=== PATIENT | male | born 1955 | race Caucasian/White ===

== ENCOUNTER → 2016-11-06 | Outpatient (POV) | payer MEDICAID, SELFPAY | PROVIDERS: Visit Provider Internal Medicine | DX: Y99.9 Unspecified external cause status (principal) | CPT/HCPCS: 93005 ==

== ENCOUNTER → 2017-10-07 13:18 | Outpatient (REF) | payer MEDICAID, SELFPAY ==
[2017-10-07 18:31] LABS: Basophils # 0.1 K/mm3 (0-0.2); Basophils % 0.8 % (0.1-2.0); Eosinophils # 0.5 K/mm3 (0.0-0.4); Eosinophils % 5.6 % (0.1-12.0); Hematocrit 45.3 % (42.0-52.0); Lymphocytes # 2.3 K/mm3 (0.7-4.5); Lymphocytes % 26.9 K/mm3 (10-50); Mean Corpuscular HGB Conc 33.2 g/dL (31.8-35.4); Mean Corpuscular Hemoglobin 28.6 pg (27.0-31.2); Mean Corpuscular Volume 86.2 fl (80-94); Mean Platelet Volume 8.6 fl (7.4-10.4); Monocytes # 0.5 K/mm3 (0.1-1.0); Monocytes % 6.1 % (1.7-9.3); Neutrophils # 5.2 K/mm3 (1.8-7.8); Neutrophils % 60.6 % (37.0-80.0); Platelet Count 236 K/mm3 (142-424); Red Blood Count 5.25 M/mm3 (4.60-6.20); Red Cell Distribution Width 13.3 % (11.5-17.5); White Blood Count 8.5 K/mm3 (4.8-10.8)
[2017-10-07 18:39] LABS: Alanine Aminotransferase 43 U/L (12-78); Albumin Level 4.1 gm/dL (3.4-5.0); Albumin/Globulin Ratio 1.3 (1.1-1.8); Alkaline Phosphatase 90 U/L (46-116); Aspartate Amino Transferase 23 U/L (15-37); Bilirubin,Total 0.4 mg/dL (0.2-1.0); Blood Urea Nitrogen 15 mg/dL (7-18); Calcium 9.2 mg/dL (8.5-10.1); Carbon Dioxide 29 mmol/L (21.0-32.0); Chloride 103 mmol/L (98-107); Creatinine,Serum 1.12 mg/dL (0.70-1.30); Estimated Glomerular Filt Rate 67 ml/min (>60); GFR (African American) 81 ML/MIN (>60); Globulin 3.2 gm/dl (1.3-3.2); Glucose 169 mg/dL (74-106); Sodium 140 mmol/L (136-145); Total Protein,Serum 7.3 gm/dL (6.4-8.2)
[2017-10-07 19:35] LABS: Hemoglobin A1C 6.6 % (0.0-7.0)
== END ==
LOC: LAB 13:18
PROVIDERS: Visit Provider Emergency Medicine
DX: R53.83 Other fatigue (principal)
CPT/HCPCS: 80053; 83036; 85025

== ENCOUNTER → 2017-10-21 10:51 | Outpatient (CLI) | payer MEDICAID, SELFPAY ==
--- NOTE | 2017-10-21 11:07 | US_ITS ---
US Arterial Ankle Brachial Ind INDICATION for exam: Lower extremity pain, leg pain. Claudication, peripheral vascular disease, rest pain, ORDERING PHYSICIAN: Lamine Lezama MD PATIENT AGE: 62 years TECHNIQUE: Segmental pressures obtained of both right and left leg. These are compared to brachial blood pressure to yield index at each level sampled including summary ALEXIA. The data sheets from the procedure are available in PACS FINDINGS Rest study only performed today No prior studies available for comparison. Blood pressures reported are in millimeters mercury. RIGHT LEG ALEXIA = 1.5. Right tibia 0.9 Brachial BP: 138 Thigh BP: 199 Calf BP: >254 Ankle PT: 217 Ankle DP : 204 Digit =126 LEFT LEG ALEXIA = 1.6 Left TBI 0.6 Brachial BPD: 147 Thigh BP: 194 Calf BP: >254 Ankle PT:230 Ankle DP: 230 Digit = 91 Pulses and waveforms: Diminished pulses and waveforms IMPRESSION: 1. Elevated ABIs on both sides consistent with noncompliant arteries/hardening of the arteries which may be seen with diabetes. 2. Low left TBI consistent with small vessel disease
== END ==
PROVIDERS: PCP Emergency Medicine; Visit Provider Internal Medicine
DX: I73.9 Peripheral vascular disease, unspecified (principal)
CPT/HCPCS: 93922

== ENCOUNTER → 2018-01-13 08:33 | Outpatient (CLI) | payer MEDICAID, SELFPAY ==
--- NOTE | 2018-01-13 08:35 | MR_ITS ---
MR lumbar spine wo con, MR 3-d myelogram/MRCP Ordering Physician: Kareem Sheridan MD Patient Age: 62 years: Male HISTORY: ITS.REASON: Back Pain Bilateral low back pain. Bilateral leg pain numbness and tingling for 2 years. If standing long period of time his legs give out TECHNIQUE: Sagittal STIR, T1, T2, axial T1 and T2. On 1.5T Siemens wide bore MRI. 3-D MR myelogram image set obtained & performed on MRI workstation. Additional sagittal thin section T2 weighted dataset obtained from this latter acquisition as well (---76 CPT) COMPARISON :Plain films lumbar spine 06/02/2016 FINDINGS Vertebral bodies appear intact no compression fractures nor lesion. Multilevel degenerative disc changes evident L5/S1. Degenerative disc with disc bulge & disc space narrowing. Most significant is the additional Focal disc herniation/disc extrusion is seen midline and just left of midline at this level.. This Focal disc extrusion seen extending over `~8 mm posterior & ~9 mm at its base This focally indents the thecal sac and displaces left S1 and possibly S2 nerve root Generous bilateral facet hypertrophy at this level also noted. However which also narrows the spinal canal and contributes to the pronounced left foraminal encroachment, and less pronounced right foraminal encroachment.. L4/5. Disc space narrowing with Generous diffuse disc bulge most evident to the right & continuing through right foramen.... Additional disc protrusion far laterally which encroaches upon lateral aspect/& exit point of the right foramen, and possibly encroach upon the right ganglia... There is also prominent facet hypertrophy at this level right greater than left along with ligamentum flavum hypertrophy. These features combine to yield mild Central Canal Stenosis in addition to the prominent right recess and foraminal encroachment,. Bilateral foraminal encroachment most pronounced right L3/4 findings less pronounced.. Slight loss of disc hydration. With mild diffuse disc bulge most evident towards right foramen. Mild/moderate Facet hypertrophy. Features combine to yield Moderate bilateral foraminal encroachment most evident to the right. The disc bulge at this level is most evident anteriorly associated with anterior marginal osteophytes.. L2/3 disc intact with only scant foraminal disc prominence. Mild/Moderate facet hypertrophy. The disc bulge at this level is most evident anteriorly associated with anterior marginal osteophytes. Bulge L1/2 mild right foraminal disc bulge minor. Minimal facet hypertrophy/arthropathy at this level. Mild bilateral right foraminal encroachment T12/L1. Disc intact neural foramen widely patent T11/12 disc intact The 3-D MR myelogram image set demonstrates the narrowing and tapering of the spinal canal most evident L4/5 based upon thecal sac most evident to the right reflecting the rightward disc bulge no L5/S1.. There is only slight minimal tapering of thecal sac at L3/4 and less the L2/3. At L5/S1 The thecal sac tapers and a small at this level best the indentation from disc herniation L5/S1 is less appreciable on the this 3-D sequence. IMPRESSION Multilevel findings findings highlighted below: L5/S1. Focal disc herniation/ w focal disc extrusion seen midline & just left of midline-focally indenting the thecal sac and displacing LEFT S1 and S2 nerve roots. Also prominent facet hypertrophy bilaterally. Combination these features does yield pronounced encroachment of the LEFT neural foramen and recess, more so than right. L4/5 generous diffuse disc bulge most evident the RIGHT. With additional far lateral rightward disc protrusion encroach upon the lateral aspect right foramen. These features combine to yield mild Central Spinal Stenosis; & generous Bilateral
== END ==
PROVIDERS: PCP Emergency Medicine; Visit Provider Emergency Medicine
DX: M54.9 Dorsalgia, unspecified (principal)
CPT/HCPCS: 72148; 76376

== ENCOUNTER → 2018-02-17 14:41 | Outpatient (POV) | payer MEDICAID, SELFPAY ==
[2018-02-17 14:56] VITALS: BP 165/101; PULSE 79; O2SAT 98
--- NOTE | 2018-02-17 15:58 | HMH.PMCON ---
Assessment and Plan (1) Degenerative disc disease Current visit: Yes Status: Chronic Category: Medical (2) Lumbar radiculopathy Current visit: Yes Status: Chronic Category: Medical Code(s): M54.16 - Radiculopathy, lumbar region (3) Intervertebral disc extrusion Current visit: Yes Status: Chronic Category: Medical - Assessment and plan all Dx Assessment and Plan for all problems:: I believe the patient is on a very appropriate dose of gabapentin 600 mg 1 p.o. 3 times daily and meloxicam 15 mg a day. Patient states this is doing quite well for him. Patient is uninterested in injections at this time. I told the patient he will follow up with us at any time. I will follow-up with him on an as-needed basis This note was dictated using voice recognition software and may contain errors or omissions HPI - Data of Consult Requesting Physician: Julissa Lund APRN Primary Care Provider: Kareem Sheridan MD Family Provider: Referral Provider, MD - Consult Narrative Reason for consult: Bilateral leg pain History of present illness: Mr. Baeza is a 62 year old malewho presents today for consult in regard to low back and bilateral leg. Patient states he had a flare of pain back 5 years ago while using a chainsaw. patient states that all movement increases his pain while his medication to decrease it. Patient states he has numbness and tingling in his bilateral legs. Patient was recently seen by a neurosurgeon and deemed a surgical candidate. Patient rates his pain a 6 out of 10 today. Patient states that with the meloxicam and gabapentin he does quite well. He denies side effects to this he states that he decreases most of his pain. Patient is not interested in injective therapy at this point. I believe the patient is doing well on his medication that this may be beneficial for him until he decides that he would like to pursue surgical options. Patient states he also has a back brace that he is now wearing which helps. CC: Julissa Lund APRN [facility] History I have reviewed the patient's past medical history: Yes Medical History: Reports:: Congenital Heart Disease, Diabetes Mellitus Type 2, Hyperlipidemia, Hypertension, Myocardial Infarction Other Surgeries: Yes: Angioplasty Amputation: No Fractures: No - *Social History Educational Level: Attended High School Smoking Status: Never smoker Tobacco Type: smokeless tobacco Alcohol Intake: never Alcohol Intake Frequency:: a few times a week Substance Use Type: denies use Occupational Status: employed Housing: house - Psychiatric History Expresses thoughts of harming self/others: None Suicide Plan Description: No Plan *Family Hx:: Cancer, Heart Attack Review of Systems - Review of Systems ROS General: no recent weight change, no fever, no sleep disturbances Respiratory: no cough, no shortness of air, no recurring pulmonary infections Cardiovascular/Peripheral Vascular: No chest pain, No palpitations, no edema, no shortness of breath. Gastrointestinal: no incontinence, normal bowel movements reported Genitourinary: no incontinence Musculoskeletal: Back pain, bilateral leg pain Psychiatric: normal mood/ affect Neurological: Weakness in bilateral lower extremities at times, [denies balance issues] Meds Home Medications Medication Instructions Recorded Confirmed Type fluticasone 110 mcg/actuation HFA 1 puff INHALATION BID 10/04/17 History aerosol inhaler omeprazole 20 mg capsule,delayed 20 mg PO ONCE 10/04/17 History release polyethylene glycol 3350 17 17 g PO ONCE 10/04/17 History gram/dose oral powder Allergies Allergy/AdvReac Type Severity Reaction Status Date / Time Penicillins Allergy Unknown Verified 01/01/18 10:18 Objective Vital signs: Pulse BP Pulse Ox 79 165/101 98 02/17/18 14:56 02/17/18 14:56 02/17/18 14:56 Narrative: Physical Exam General: Alert
--- NOTE | 2018-02-17 16:01 | P.CONS_ITS ---
Assessment and Plan (1) Degenerative disc disease Current visit: Yes Status: Chronic Category: Medical (2) Lumbar radiculopathy Current visit: Yes Status: Chronic Category: Medical Code(s): M54.16 - Radiculopathy, lumbar region (3) Intervertebral disc extrusion Current visit: Yes Status: Chronic Category: Medical - Assessment and plan all Dx Assessment and Plan for all problems:: I believe the patient is on a very appropriate dose of gabapentin 600 mg 1 p.o. 3 times daily and meloxicam 15 mg a day. Patient states this is doing quite well for him. Patient is uninterested in injections at this time. I told the patient he will follow up with us at any time. I will follow-up with him on an as-needed basis This note was dictated using voice recognition software and may contain errors or omissions HPI - Data of Consult Requesting Physician: Julissa Lund APRN Primary Care Provider: Kareem Sheridan MD Family Provider: Referral Provider, MD - Consult Narrative Reason for consult: Bilateral leg pain History of present illness: Mr. Baeza is a 62 year old malewho presents today for consult in regard to low back and bilateral leg. Patient states he had a flare of pain back 5 years ago while using a chainsaw. patient states that all movement increases his pain while his medication to decrease it. Patient states he has numbness and tingling in his bilateral legs. Patient was recently seen by a neurosurgeon and deemed a surgical candidate. Patient rates his pain a 6 out of 10 today. Patient states that with the meloxicam and gabapentin he does quite well. He denies side effects to this he states that he decreases most of his pain. Patient is not interested in injective therapy at this point. I believe the patient is doing well on his medication that this may be beneficial for him until he decides that he would like to pursue surgical options. Patient states he also has a back brace that he is now wearing which helps. CC: Julissa Lund APRN [facility] History I have reviewed the patient's past medical history: Yes Medical History: Reports:: Congenital Heart Disease, Diabetes Mellitus Type 2, Hyperlipidemia, Hypertension, Myocardial Infarction Other Surgeries: Yes: Angioplasty Amputation: No Fractures: No - *Social History Educational Level: Attended High School Smoking Status: Never smoker Tobacco Type: smokeless tobacco Alcohol Intake: never Alcohol Intake Frequency:: a few times a week Substance Use Type: denies use Occupational Status: employed Housing: house - Psychiatric History Expresses thoughts of harming self/others: None Suicide Plan Description: No Plan *Family Hx:: Cancer, Heart Attack Review of Systems - Review of Systems ROS General: no recent weight change, no fever, no sleep disturbances Respiratory: no cough, no shortness of air, no recurring pulmonary infections Cardiovascular/Peripheral Vascular: No chest pain, No palpitations, no edema, no shortness of breath. Gastrointestinal: no incontinence, normal bowel movements reported Genitourinary: no incontinence Musculoskeletal: Back pain, bilateral leg pain Psychiatric: normal mood/ affect Neurological: Weakness in bilateral lower extremities at times, [denies balance issues] Meds Home Medications Medication Instructions Recorded Confirmed Type fluticasone 110 mcg/actuation HFA 1 puff INHALATION BID 10/04/17 History aerosol inhaler ome
== END ==
PROVIDERS: PCP Emergency Medicine; Visit Provider Clinical Nurse Specialist Family Health
DX: M54.16 Radiculopathy, lumbar region (principal)
CPT/HCPCS: 99202

== ENCOUNTER → 2018-03-31 16:27 | Outpatient (REF) | payer MEDICAID, SELFPAY ==
[2018-03-31 18:48] LABS: Basophils # 0.1 K/mm3 (0-0.2); Basophils % 1.2 % (0.1-2.0); Eosinophils # 0.6 K/mm3 (0.0-0.4); Eosinophils % 7.3 % (0.1-12.0); Hematocrit 46.1 % (42.0-52.0); Hemoglobin 14.9 g/dL (14.1-18.0); Lymphocytes # 2.4 K/mm3 (0.7-4.5); Lymphocytes % 30.5 K/mm3 (10-50); Mean Corpuscular HGB Conc 32.4 g/dL (31.8-35.4); Mean Corpuscular Hemoglobin 28.2 pg (27.0-31.2); Mean Corpuscular Volume 87.1 fl (80-94); Mean Platelet Volume 8.5 fl (7.4-10.4); Monocytes # 0.5 K/mm3 (0.1-1.0); Monocytes % 6.5 % (1.7-9.3); Neutrophils # 4.3 K/mm3 (1.8-7.8); Neutrophils % 54.4 % (37.0-80.0); Platelet Count 253 K/mm3 (142-424); Red Blood Count 5.29 M/mm3 (4.60-6.20); Red Cell Distribution Width 13.3 % (11.5-17.5); White Blood Count 7.9 K/mm3 (4.8-10.8)
[2018-03-31 19:07] LABS: Alanine Aminotransferase 51 U/L (12-78); Albumin Level 4.1 gm/dL (3.4-5.0); Albumin/Globulin Ratio 1.2 (1.1-1.8); Alkaline Phosphatase 92 U/L (46-116); Anion Gap 15.5 mEq/L (5-15); Aspartate Amino Transferase 25 U/L (15-37); Bilirubin,Total 0.4 mg/dL (0.2-1.0); Blood Urea Nitrogen 19 mg/dL (7-18); Calcium 9.4 mg/dL (8.5-10.1); Carbon Dioxide 27 mmol/L (21.0-32.0); Chloride 112 mmol/L (98-107); Cholesterol 144 mg/dL (140-200); Creatinine,Serum 1.36 mg/dL (0.70-1.30); Estimated Glomerular Filt Rate 53 ml/min (>60); GFR (African American) 64 ML/MIN (>60); Globulin 3.3 gm/dl (1.3-3.2); Glucose 169 mg/dL (74-106); HDL Cholesterol 29 mg/dL (27-67); LDL Cholesterol 81 mg/dL (0-130); Potassium 4.5 mmoL/L (3.5-5.1); Total Protein,Serum 7.4 gm/dL (6.4-8.2); Triglycerides 171 mg/dL (30-200); VLDL Cholesterol 34 mg/dL (0-40)
[2018-03-31 19:22] LABS: Sodium 150 mmol/L (136-145)
== END ==
LOC: LAB 16:27
PROVIDERS: Visit Provider Emergency Medicine
DX: E11.9 Type 2 diabetes mellitus without complications (principal)
CPT/HCPCS: 80053; 80061; 85025

== ENCOUNTER → 2018-04-02 13:18 | Outpatient (CLI) | payer MEDICAID, SELFPAY | PROVIDERS: Visit Provider Physician Assistant | DX: E11.9 Type 2 diabetes mellitus without complications (principal) ==

== ENCOUNTER → 2018-05-27 09:12 | Outpatient (REF) | payer MEDICAID, SELFPAY ==
[2018-05-27 14:31] LABS: Amphetamine/Metha Screen,Urine Negative ng/mL (<1000); Barbiturates Screen,Urine Negative ng/mL (<200); Benzodiazepines Screen,Urine Negative ng/mL (<200); Cannabinoid Screen,Urine Negative ng/mL (<50); Cocaine Screen,Urine Negative ng/mL (<300); Methadone Screen,Urine Negative ng/mL (<300); Opiate Screen,Urine Positive ng/mL (<300); Phencyclidine Screen,Urine Negative ng/mL (<25)
== END ==
LOC: LAB 09:12
PROVIDERS: Visit Provider Emergency Medicine
DX: Z79.899 Other long term (current) drug therapy (principal)
CPT/HCPCS: 80305

== ENCOUNTER → 2018-06-25 16:03 | Outpatient (CLI) | payer MEDICAID, SELFPAY | PROVIDERS: Visit Provider Emergency Medicine | DX: Z79.899 Other long term (current) drug therapy (principal) ==

== ENCOUNTER → 2018-07-24 14:53 | Outpatient (CLI) | payer MEDICAID, SELFPAY ==
[2018-07-25 19:15] LABS: Amphetamine/Metha Screen,Urine Negative ng/mL (<1000); Barbiturates Screen,Urine Negative ng/mL (<200); Benzodiazepines Screen,Urine Negative ng/mL (<200); Cannabinoid Screen,Urine Negative ng/mL (<50); Cocaine Screen,Urine Negative ng/mL (<300); Methadone Screen,Urine Negative ng/mL (<300); Opiate Screen,Urine Positive ng/mL (<300); Phencyclidine Screen,Urine Negative ng/mL (<25)
== END ==
PROVIDERS: PCP Emergency Medicine; Visit Provider Emergency Medicine
DX: Z79.899 Other long term (current) drug therapy (principal)
CPT/HCPCS: 80305

== ENCOUNTER → 2018-08-25 18:17 | Outpatient (CLI) | payer MEDICAID, SELFPAY ==
[2018-08-25 19:13] LABS: Amphetamine/Metha Screen,Urine Negative ng/mL (<1000); Barbiturates Screen,Urine Negative ng/mL (<200); Benzodiazepines Screen,Urine Negative ng/mL (<200); Cannabinoid Screen,Urine Negative ng/mL (<50); Cocaine Screen,Urine Negative ng/mL (<300); Methadone Screen,Urine Negative ng/mL (<300); Opiate Screen,Urine Positive ng/mL (<300); Phencyclidine Screen,Urine Negative ng/mL (<25)
== END ==
PROVIDERS: Visit Provider Emergency Medicine
DX: Z79.899 Other long term (current) drug therapy (principal); R53.83 Other fatigue
CPT/HCPCS: 80305

== ENCOUNTER → 2018-09-18 13:23 | Outpatient (CLI) | payer MEDICAID, SELFPAY | PROVIDERS: PCP Emergency Medicine; Visit Provider Podiatrist | DX: Z71.3 Dietary counseling and surveillance (principal); E11.9 Type 2 diabetes mellitus without complications | CPT/HCPCS: 97802 ==

== ENCOUNTER → 2018-11-25 17:40 | Outpatient (CLI) | payer MEDICAID, SELFPAY ==
[2018-11-25 19:06] LABS: Amphetamine/Metha Screen,Urine Negative ng/mL (<1000); Barbiturates Screen,Urine Negative ng/mL (<200); Benzodiazepines Screen,Urine Negative ng/mL (<200); Cannabinoid Screen,Urine Negative ng/mL (<50); Cocaine Screen,Urine Negative ng/mL (<300); Methadone Screen,Urine Negative ng/mL (<300); Opiate Screen,Urine Positive ng/mL (<300); Phencyclidine Screen,Urine Negative ng/mL (<25)
[2018-11-27 11:32] LABS: Creatinine, Urine 51.5 mg/dL (Not Estab.); Microalbumin, Urine 5.7 ug/mL (Not Estab.)
== END ==
PROVIDERS: Visit Provider Emergency Medicine
DX: E11.9 Type 2 diabetes mellitus without complications (principal); Z79.899 Other long term (current) drug therapy; Z79.84 Long term (current) use of oral hypoglycemic drugs
CPT/HCPCS: 80305; 82043; 82570

== ENCOUNTER → 2019-01-16 07:01 | Outpatient (CLI) | payer MEDICAID, SELFPAY ==
[2019-01-16 18:00] LABS: Anion Gap 14.4 mEq/L (5-15); Blood Urea Nitrogen 13 mg/dL (7-18); Carbon Dioxide 26 mmol/L (21.0-32.0); Chloride 103 mmol/L (98-107); Creatinine,Serum 1.11 mg/dL (0.70-1.30); Estimated Glomerular Filt Rate 67 ml/min (>60); GFR (African American) 81 ML/MIN (>60); Glucose 226 mg/dL (74-106); Potassium 4.4 mmoL/L (3.5-5.1); Sodium 139 mmol/L (136-145)
== END ==
PROVIDERS: Visit Provider Nurse Practitioner Family
DX: R06.02 Shortness of breath (principal); E11.9 Type 2 diabetes mellitus without complications; Z79.84 Long term (current) use of oral hypoglycemic drugs; I25.10 Atherosclerotic heart disease of native coronary artery without angina pectoris; I45.10 Unspecified right bundle-branch block; E78.49 Other hyperlipidemia; R07.9 Chest pain, unspecified; I10 Essential (primary) hypertension; J44.9 Chronic obstructive pulmonary disease, unspecified; E66.9 Obesity, unspecified
CPT/HCPCS: 36415; 80048

== ENCOUNTER → 2019-01-21 09:31 | Outpatient (CLI) | payer MEDICAID, SELFPAY ==
--- NOTE | 2019-01-21 09:33 | CA_ITS ---
PROCEDURE: 2-D M-mode and color Doppler study INDICATIONS FOR THE TEST: Chest pain + COPD Heart Murmur Tobacco Smoking Palpitations Fatigue Syncope Edema Hypertension+Diabetes Mellitus+ Rheumatic Fever SOB+MACKENZIE Obesity+Hyperlipidemia Family History HD Additional History gabino PATIENT INFORMATION HEIGHT: 73 WEIGHT:273 GENDER: Male B/P:135/87 2-D/M-MODE INTERPRETATION: 2-D MEASUREMENTS OBSERVED VALUES IN CMS Right Ventricular Dimension (RVDd) 2.9 Interventricular Septum (Thickness)(IVsd) 1.7 Left Ventricular Internal Dimensions(LVIDd) 4.8 Left Ventricular Posterior Wall (Thickness)(LVPWd) 1.2 Aortic Root 3.5 Aortic Cusp Separation 2.1 Left Atrial Dimensions (LAD) 3.9 2D 1. Left atrium is mildly enlarged, left ventricle is normal size, mild concentric left ventricular hypertrophy, visually estimated ejection fraction of 55% with no regional wall motion abnormality. 2. The right atrium and right ventricle are mildly enlarged with normal contractility. 3. The aortic valve is minimally thickened and fibrosed. 4. The mitral and tricuspid valve are grossly normal. 5. The pulmonic valve is poorly visualized. 6. No significant pericardial effusion noted. DOPPLER INTERROGATION: Doppler interrogation of the aortic, mitral and tricuspid valvular presence of mild mitral and tricuspid regurgitation, tricuspid regurgitation jet velocity is inadequate for calculation of the right ventricular systolic pressure, grade 1 diastolic dysfunction seen without tissue Doppler evidence of raised left atrial pressure. Inferior vena cava is not well visualized. CONCLUSION: 1. Mildly enlarged left atrium, normal left ventricular size, mild concentric left ventricular hypertrophy, visually estimated ejection fraction 55% with no regional wall motion abnormality, grade 1 diastolic dysfunction seen without tissue Doppler evidence of raised left atrial pressure. 2. Mildly enlarged right ventricle with normal contractility. 3. Mild mitral and tricuspid regurgitation, tricuspid regurgitation jet velocity is inadequate for calculation of the right ventricular systolic pressure, inferior vena cava is not well visualized. 4. No significant pericardial effusion noted.
--- NOTE | 2019-01-21 09:33 | NM_ITS ---
CARDIOLITE SPECT MYOCARDIAL PERFUSION LEXISCAN, REST AND STRESS: [facility] REVIEW QGS EF AND WALL MOTION EVALUATION: QPS - PERFUSION EVALUATION HISTORY: CAD, SOB DOSE: 10.59 mCi technetium 99m mibi intravenously at rest followed by 31.1 mCi technetium 99m mibi following the intravenous ministration of 0.4 mg of Lexiscan. Resting blood pressure is 129/83. Stress blood pressure 138/82. FINDINGS: Ejection fraction is calculated to be 56%. Uniform myocardial activity at both stress and rest. Gated images calculated ejection fraction of 56% with normal wall motion. IMPRESSION: Clinical correlation is advised. Patient did experience abnormal exercise EKG. There is no scintigraphic evidence of exercise-induced myocardial ischemia with normal ejection fraction normal wall motion
--- NOTE | 2019-01-21 09:33 | CI_ITS ---
Cerebrovascular Exam Indications: Follow-up carotid 433.10. IMPRESSIONS 1. The bilateral vertebral arteries are patent with normal antegrade flow. 2. Study suggests 20-49% stenosis involving the right internal carotid artery and the left internal carotid artery. Carotid duplex study. Complete study and Doppler flow study including spectral analysis, color and carson scale imaging. Height: Height: 185.4cm. Height: 73in. Weight: Weight: 123.8kg. Weight: 272.4lb. Body mass index: BMI: 36kg/m^2. Body surface area: BSA: 2.57m^2. Location: Vascular laboratory. Patient status: Outpatient. Tables: Arterial flow: + +--------+--------+ Location V sys V ed + +--------+--------+ Right CCA - proximal 86.4cm/s 19.6cm/s + +--------+--------+ Right CCA - distal 64.8cm/s 17.7cm/s + +--------+--------+ Right ECA 96.7cm/s -------- + +--------+--------+ Right ICA - proximal 99.5cm/s 35.3cm/s + +--------+--------+ Right ICA - mid 64.7cm/s 28.3cm/s + +--------+--------+ Right ICA - distal 59.9cm/s 26.2cm/s + +--------+--------+ Right vertebral 39.8cm/s -------- + +--------+--------+ Left CCA - proximal 95.7cm/s 24.6cm/s + +--------+--------+ Left CCA - distal 81.7cm/s 22.6cm/s + +--------+--------+ Left ECA 115cm/s -------- + +--------+--------+ Left ICA - proximal 48.2cm/s 16.8cm/s + +--------+--------+ Left ICA - mid 60.4cm/s 25.8cm/s + +--------+--------+ Left ICA - distal 73.4cm/s 40.3cm/s + +--------+--------+ Left vertebral 31.8cm/s -------- + +--------+--------+ Velocity ratios: + + + + + + Right, V sys Right, V ed Left, V sys Left, V ed + + + + + + Max ICA/dist CCA 1.54 1.99 0.9 1.78 + + + + + + (Report amended ) Electronically signed by: Rufino Guthrie [id number]
== END ==
PROVIDERS: PCP Emergency Medicine; Visit Provider Internal Medicine
DX: I25.10 Atherosclerotic heart disease of native coronary artery without angina pectoris (principal); R06.02 Shortness of breath; E11.9 Type 2 diabetes mellitus without complications; Z79.84 Long term (current) use of oral hypoglycemic drugs; E66.9 Obesity, unspecified; E78.49 Other hyperlipidemia; I10 Essential (primary) hypertension; I45.10 Unspecified right bundle-branch block; J44.9 Chronic obstructive pulmonary disease, unspecified; R60.9 Edema, unspecified; R07.9 Chest pain, unspecified; I67.2 Cerebral atherosclerosis; E78.5 Hyperlipidemia, unspecified; Z72.0 Tobacco use
CPT/HCPCS: 78452; 93017; 93306; 93880; A9502; J2785

== ENCOUNTER 2019-02-05 08:09 | Day surgery (SDC) | payer MEDICAID, SELFPAY ==
[2019-02-05] VITALS (12 sets, daily range): BP systolic 93–155; BP diastolic 44–76; PULSE 58–66; RESP 16–18; O2SAT 91–98; BMI 36.0
--- NOTE | 2019-02-05 09:00 | IR_ITS ---
CARDIAC CATHETERIZATION DATE OF CATHETERIZATION:02/05/2019 9:45 AM PROCEDURES: 1. Left heart catheterization 2. Left ventriculogram 3. Selective coronary angiogram INDICATION FOR TEST: 1. Angina pectoris 2. Abnormal EKG during stress test 3. Coronary artery disease Informed consent was obtained prior to the procedure. COMPLICATIONS: None ESTIMATED BLOOD LOSS: Less than 10 ml. TECHNIQUE: One percent lidocaine used to anesthetize the right anterior aspect of the wrist. The right radial artery was accessed via the Seldinger technique. A 6 Malay sheath was placed in the right radial artery. 2.5 mg of verapamil, 800 mcg of nitroglycerin, 1mg Lidocaine and 5000 U Heparin were given through the arterial sheath. The trap catheter was also used to perform left heart catheterization, left ventriculogram and selective coronary angiogram. At the end of the procedure the sheath was removed good hemostasis was achieved using Traclet band, patient was transferred to the postop holding area in stable condition . ANGIOGRAPHIC RESULTS: 1. The left main artery normal 2. The left anterior descending artery is proximally normal and has mild 10-20% luminal irregularities 3. The circumflex artery is dominant and normal 4. The right coronary artery small nondominant normal 5. The NOLAN ventriculogram reveals normal 65% 6. The left ventricular end-diastolic pressure 15 mmHg IMPRESSION: 1. Mild nonflow limiting coronary artery disease 2. Normal ejection fraction 3. Mildly elevated LVEDP PLAN: 1. Medical management
[2019-02-05 09:27] LABS: Basophils % 0.4 % (0.1-2.0); Eosinophils # 0.3 K/mm3 (0.0-0.4); Eosinophils % 4.1 % (0.1-12.0); Hematocrit 40.6 % (42.0-52.0); Hemoglobin 14.3 g/dL (14.1-18.0); Lymphocytes # 2.3 K/mm3 (0.7-4.5); Lymphocytes % 32.1 % (10-50); Mean Corpuscular HGB Conc 35.2 g/dL (31.8-35.4); Mean Corpuscular Hemoglobin 30.2 pg (27.0-31.2); Mean Corpuscular Volume 85.8 fl (80-94); Mean Platelet Volume 7.6 fl (7.4-10.4); Monocytes # 0.4 K/mm3 (0.1-1.0); Monocytes % 5.2 % (1.7-9.3); Neutrophils # 4.1 K/mm3 (1.8-7.8); Neutrophils % 58.1 % (37.0-80.0); Platelet Count 235 K/mm3 (142-424); Red Blood Count 4.73 M/mm3 (4.60-6.20); Red Cell Distribution Width 13.3 % (11.5-17.5); White Blood Count 7.1 K/mm3 (4.8-10.8)
[2019-02-05 09:36] LABS: Anion Gap 16.1 mEq/L (5-15); Blood Urea Nitrogen 21 mg/dL (7-18); Calcium 9.2 mg/dL (8.5-10.1); Carbon Dioxide 25 mmol/L (21.0-32.0); Chloride 101 mmol/L (98-107); Creatinine Clearance Estimated 96 mL/min (50-200); Creatinine,Serum 1.38 mg/dL (0.70-1.30); Estimated Glomerular Filt Rate 52 ml/min (>60); GFR (African American) 63 ML/MIN (>60); Glucose 238 mg/dL (74-106); Potassium 4.1 mmoL/L (3.5-5.1); Sodium 138 mmol/L (136-145)
== END 2019-02-05 13:48 | disposition home or self-care (01) ==
LOC: CATHLAB 08:10
PROVIDERS: PCP Emergency Medicine; Visit Provider Internal Medicine
DX: I25.118 Atherosclerotic heart disease of native coronary artery with other forms of angina pectoris (principal); E11.9 Type 2 diabetes mellitus without complications; E66.9 Obesity, unspecified; I45.10 Unspecified right bundle-branch block; I10 Essential (primary) hypertension; J44.9 Chronic obstructive pulmonary disease, unspecified; R06.02 Shortness of breath; Z21 Asymptomatic human immunodeficiency virus [HIV] infection status; Z95.5 Presence of coronary angioplasty implant and graft; E78.5 Hyperlipidemia, unspecified; I25.2 Old myocardial infarction; Z88.1 Allergy status to other antibiotic agents; Z79.899 Other long term (current) drug therapy
CPT/HCPCS: 80048; 85025; 93458; 99152; C1760; C1769; J1644; Q9967

== ENCOUNTER → 2019-04-29 13:42 | Outpatient (CLI) | payer MEDICAID, SELFPAY ==
[2019-04-29 14:06] LABS: Basophils # 0.1 K/mm3 (0-0.2); Basophils % 0.7 % (0.1-2.0); Eosinophils # 0.2 K/mm3 (0.0-0.4); Eosinophils % 3.1 % (0.1-12.0); Hematocrit 35.7 % (42.0-52.0); Hemoglobin 11.9 g/dL (14.1-18.0); Lymphocytes # 2.2 K/mm3 (0.7-4.5); Lymphocytes % 30.4 % (10-50); Mean Corpuscular HGB Conc 33.2 g/dL (31.8-35.4); Mean Corpuscular Volume 90.3 fl (80-94); Mean Platelet Volume 7.9 fl (7.4-10.4); Monocytes # 0.4 K/mm3 (0.1-1.0); Monocytes % 5.5 % (1.7-9.3); Neutrophils # 4.3 K/mm3 (1.8-7.8); Neutrophils % 60.2 % (37.0-80.0); Platelet Count 245 K/mm3 (142-424); Red Blood Count 3.95 M/mm3 (4.60-6.20); Red Cell Distribution Width 13.7 % (11.5-17.5); White Blood Count 7.1 K/mm3 (4.8-10.8)
[2019-04-29 15:46] LABS: Alanine Aminotransferase 79 U/L (12-78); Albumin Level 3.8 gm/dL (3.4-5.0); Albumin/Globulin Ratio 1.2 (1.1-1.8); Alkaline Phosphatase 89 U/L (46-116); Anion Gap 18.5 mEq/L (5-15); Aspartate Amino Transferase 30 U/L (15-37); Bilirubin,Total 0.6 mg/dL (0.2-1.0); Blood Urea Nitrogen 39 mg/dL (7-18); Calcium 9.1 mg/dL (8.5-10.1); Carbon Dioxide 21 mmol/L (21.0-32.0); Chloride 99 mmol/L (98-107); Chol/HDL Ratio 5.2 (1-3.5); Cholesterol 119 mg/dL (140-200); Creatinine,Serum 2.08 mg/dL (0.70-1.30); Estimated Glomerular Filt Rate 32 ml/min (>60); GFR (African American) 39 ML/MIN (>60); Globulin 3.3 gm/dl (1.3-3.2); Glucose 272 mg/dL (74-106); HDL Cholesterol 23 mg/dL (27-67); LDL Cholesterol 53 mg/dL (0-130); Potassium 5.5 mmoL/L (3.5-5.1); Sodium 133 mmol/L (136-145); T4 (Thyroxine) 5.7 ug/dl (4.7-13.3); Thyroid Stimulating Hormone 1.68 uIU/ml (0.358-3.740); Total Protein,Serum 7.1 gm/dL (6.4-8.2); Triglycerides 217 mg/dL (30-200); VLDL Cholesterol 43 mg/dL (0-40)
[2019-04-29 16:48] LABS: Hemoglobin A1C 9.4 % (0.0-7.0)
== END ==
PROVIDERS: Visit Provider Emergency Medicine
DX: E11.9 Type 2 diabetes mellitus without complications (principal); Z79.84 Long term (current) use of oral hypoglycemic drugs
CPT/HCPCS: 80053; 80061; 83036; 84436; 84443; 85025

== ENCOUNTER → 2019-05-05 17:31 | Outpatient (CLI) | payer MEDICAID, SELFPAY ==
[2019-05-06 15:30] LABS: Anion Gap 20.4 mEq/L (5-15); Blood Urea Nitrogen 45 mg/dL (7-18); Carbon Dioxide 20 mmol/L (21.0-32.0); Chloride 97 mmol/L (98-107); Estimated Glomerular Filt Rate 15 ml/min (>60); GFR (African American) 18 ML/MIN (>60); Glucose 171 mg/dL (74-106); Potassium 4.4 mmoL/L (3.5-5.1); Sodium 133 mmol/L (136-145)
== END ==
PROVIDERS: Visit Provider Emergency Medicine
DX: E11.9 Type 2 diabetes mellitus without complications (principal)
CPT/HCPCS: 80048

== ENCOUNTER → 2019-05-11 09:53 | Outpatient (CLI) | payer MEDICAID, SELFPAY ==
[2019-05-11 11:19] LABS: Anion Gap 15.8 mEq/L (5-15); Blood Urea Nitrogen 15 mg/dL (7-18); Calcium 9.1 mg/dL (8.5-10.1); Carbon Dioxide 23 mmol/L (21.0-32.0); Chloride 105 mmol/L (98-107); Creatinine,Serum 1.25 mg/dL (0.70-1.30); Estimated Glomerular Filt Rate 58 ml/min (>60); GFR (African American) 71 ML/MIN (>60); Glucose 245 mg/dL (74-106); Potassium 4.8 mmoL/L (3.5-5.1); Sodium 139 mmol/L (136-145)
== END ==
PROVIDERS: Visit Provider Emergency Medicine
DX: E11.9 Type 2 diabetes mellitus without complications (principal); Z79.84 Long term (current) use of oral hypoglycemic drugs
CPT/HCPCS: 36415; 80048

== ENCOUNTER → 2019-06-05 17:47 | Outpatient (CLI) | payer MEDICAID, SELFPAY ==
[2019-06-05 18:25] LABS: Anion Gap 14.4 mEq/L (5-15); Blood Urea Nitrogen 14 mg/dL (7-18); Calcium 9.3 mg/dL (8.5-10.1); Carbon Dioxide 24 mmol/L (21.0-32.0); Chloride 106 mmol/L (98-107); Creatinine,Serum 1.04 mg/dL (0.70-1.30); Estimated Glomerular Filt Rate 72 ml/min (>60); GFR (African American) 87 ML/MIN (>60); Glucose 134 mg/dL (74-106); Potassium 4.4 mmoL/L (3.5-5.1); Sodium 140 mmol/L (136-145)
== END ==
PROVIDERS: Visit Provider Emergency Medicine
DX: E13.9 Other specified diabetes mellitus without complications (principal)
CPT/HCPCS: 80048

== ENCOUNTER → 2019-07-31 13:42 | Outpatient (CLI) | payer OTHER, SELFPAY ==
[2019-07-31 15:07] LABS: Anion Gap 11.7 mEq/L (5-15); Blood Urea Nitrogen 17 mg/dL (7-18); Calcium 9.4 mg/dL (8.5-10.1); Carbon Dioxide 28 mmol/L (21.0-32.0); Chloride 102 mmol/L (98-107); Creatinine,Serum 1.13 mg/dL (0.70-1.30); Estimated Glomerular Filt Rate 66 ml/min (>60); GFR (African American) 79 ML/MIN (>60); Glucose 232 mg/dL (74-106); Potassium 4.7 mmoL/L (3.5-5.1); Sodium 137 mmol/L (136-145)
== END ==
PROVIDERS: Visit Provider Surgery
DX: Z12.11 Encounter for screening for malignant neoplasm of colon (principal)
CPT/HCPCS: 36415; 80048

== ENCOUNTER 2019-09-24 08:45 | Day surgery (SDC) | payer OTHER, SELFPAY ==
[2019-09-23 09:47] VITALS: BMI 35.6
[2019-09-24] VITALS (9 sets, daily range): BP systolic 84–135; BP diastolic 45–96; PULSE 59–81; RESP 18; TEMP 36.6; O2SAT 92–99
[2019-09-24 09:19] LABS: POC Glucose,Bedside 207 (70-110)
[2019-09-24 10:09] LABS: POC Glucose,Bedside 210 (70-110)
--- NOTE | 2019-09-24 10:14 | HMH.ANESCL ---
[facility] Anesthesia Checklist - Patient Identification Patient Identification: Arm Band, Verbal (Name & ) - Structural Data Admitted From: Home Planned Operative Procedure/s: Colonoscopy Consent for Planned Operative Procedure(s) Verified: Yes Verified Documents: Surgical Consent, History and Physical - NPO Status Verified Time NPO: 00:00 - Chart Verification Results Verified: None - Additional verifications Fingerstick Blood Glucose: 207 (207 treated with Regular Insulin 5 units, now 210 treated with 5 units Regular Insulin IV) Anesthesia Reactions: No - Airway Assessment C-Spine Mobility Assessed: Yes TMJ Mobility Assessed: Yes Dentition: Edentulous - Neurological Assessment Level of Consciousness: Awake, Alert, Appropriate, Follows Commands Hx Seizures: No Numbness or tingling in extremities: Yes (Bilateral lower extremities) - Anesthesia Plan Anesthesia Risk discussed: Yes Anesthesia Plan: Verified ASA Class: III Anesthesia Type: [facility] History I have reviewed the patient's past medical history: Yes Medical History: Reports:: Asthma, Chronic Obstructive Pulmonary Disease (COPD), Congenital Heart Disease, Coronary Artery Disease, Diabetes Mellitus Type 2, Gastroesophageal Reflux Disease(GERD), Hyperlipidemia, Hypertension, Lung Disease, Myocardial Infarction Denies:: Cancer, Diabetes Mellitus Type 1, Internal Pacemaker, MRSA, Seizures *Have you ever received a pneumonia vaccine?: Yes *Have you received a flu vaccine this season?: Yes Other Medical History: Reports: Cataracts, Acquired Immunodeficiency Syndrome (AIDS), Other Comment:: Obesity Anesthesia experience/problems:: none Other Surgeries: Yes: Angioplasty, Cardiac Catheterization, Cardiac Surgery, Colonoscopy, Coronary Stent, Other. No: Pacemaker Amputation: No Fractures: No - *Social History Educational Level: Attended High School Tobacco Type: smokeless tobacco Alcohol Intake: never Alcohol Intake Frequency:: a few times a week Substance Use Type: denies use *Occupational Status:: employed Housing: house Household Members: spouse *Travel in the last 8 weeks: None Family Hx:: Cancer, Heart Attack
--- NOTE | 2019-09-24 10:48 | P.PCN_ITS ---
- Procedure: Date: 09/24/19 Procedure Performed:: Colonoscopy with polypectomy Indications:: Fairly short-term repeat colonoscopy secondary to limited bowel preparation. History of colon polyps Sigmoid diverticulosis Performing Provider:: Andrew Magallon MD Referring Provider:: . Sedation:: Monitored anesthesia care Procedure:: After informed consent was obtained the patient was taken to the endoscopy suite. Sedation ensued after the patient was transferred to the left lateral decubitus position. Pulse, blood pressure, and oxygen saturation were monitored throughout the procedure. Digital rectal exam revealed no significant abnormality. The colonoscope was placed in position. The entire colon was evaluated. The colonoscope was carefully removed and the patient was tra nsferred to recovery in stable condition. Please see findings and specimens below for detail. Findings:: Bowel preparation moderate (significantly improved versus prior evaluation) Unchanged sigmoid diverticulosis Moderate tortuosity/spasticity/lack of relaxation Polyps (see specimens) Specimens:: Periappendiceal polyp Sessile 9 mm cecal polyp (snare) Sessile polyp at 40 cm (snare) Recommendations:: Timing of repeat colonoscopy is pending pathology but will likely be between 2-3 years secondary to limitations in visualization and size/nature of polyps. Complications:: No immediate Estimated blood obtained (mL): 1
--- NOTE | 2019-09-24 11:36 | SUR.PHASEII ---
Fingerstick: 130, no intervention taken.
[2019-09-24 11:41] LABS: POC Glucose,Bedside 130 (70-110)
== END 2019-09-24 12:30 | disposition home or self-care (01) ==
LOC: OUTP 08:46
PROVIDERS: PCP Emergency Medicine; Visit Provider Surgery
PROC: 0DJD8ZZ Inspection of Lower Intestinal Tract, Via Natural or Artificial Opening Endoscopic (ICD-10-PCS; CPT 45385; principal; 2019-09-24 10:00)
DX: Z12.11 Encounter for screening for malignant neoplasm of colon (principal); K57.30 Diverticulosis of large intestine without perforation or abscess without bleeding; K63.5 Polyp of colon; K56.2 Volvulus
CPT/HCPCS: 45385; 45380; 82962

== ENCOUNTER → 2019-10-26 16:49 | Outpatient (CLI) | payer OTHER, SELFPAY ==
[2019-10-26 17:25] LABS: Basophils % 0.6 % (0.1-2.0); Eosinophils # 0.3 K/mm3 (0.0-0.4); Eosinophils % 4.9 % (0.1-12.0); Hematocrit 42.9 % (42.0-52.0); Hemoglobin 14.6 g/dL (14.1-18.0); Lymphocytes # 2.6 K/mm3 (0.7-4.5); Lymphocytes % 38.1 % (10-50); Mean Corpuscular HGB Conc 33.9 g/dL (31.8-35.4); Mean Corpuscular Hemoglobin 29.6 pg (27.0-31.2); Mean Corpuscular Volume 87.4 fl (80-94); Mean Platelet Volume 8.2 fl (7.4-10.4); Monocytes # 0.4 K/mm3 (0.1-1.0); Monocytes % 5.3 % (1.7-9.3); Neutrophils # 3.5 K/mm3 (1.8-7.8); Neutrophils % 51.1 % (37.0-80.0); Platelet Count 268 K/mm3 (142-424); Red Blood Count 4.91 M/mm3 (4.60-6.20); Red Cell Distribution Width 13.4 % (11.5-17.5); White Blood Count 6.9 K/mm3 (4.8-10.8)
[2019-10-26 17:42] LABS: Alanine Aminotransferase 58 U/L (12-78); Albumin Level 3.9 g/dL (3.4-5.0); Albumin/Globulin Ratio 1.3 (1.1-1.8); Alkaline Phosphatase 96 U/L (46-116); Anion Gap 15.1 mEq/L (5-15); Aspartate Amino Transferase 26 U/L (15-37); Bilirubin,Total 0.4 mg/dL (0.2-1.0); Blood Urea Nitrogen 13 mg/dL (7-18); Calcium 9.2 mg/dL (8.5-10.1); Carbon Dioxide 25 mmol/L (21.0-32.0); Chloride 110 mmol/L (98-107); Chol/HDL Ratio 4.5 (1-3.5); Cholesterol 113 mg/dL (140-200); Creatinine,Serum 1.05 mg/dL (0.70-1.30); Estimated Glomerular Filt Rate 71 ml/min (>60); Free T4 (Free Thyroxine) 0.95 ng/dl (0.76-1.46); GFR (African American) 86 ML/MIN (>60); Globulin 3.1 gm/dl (1.3-3.2); Glucose 141 mg/dL (74-106); HDL Cholesterol 25 mg/dL (27-67); LDL Cholesterol 66 mg/dL (0-130); Potassium 4.1 mmoL/L (3.5-5.1); Sodium 146 mmol/L (137-145); Thyroid Stimulating Hormone 1.85 uIU/ml (0.358-3.740); Triglycerides 110 mg/dL (30-200); VLDL Cholesterol 22 mg/dL (0-40)
[2019-10-28 13:33] LABS: Creatinine, Urine 34.3 mg/dL (Not Estab.); Microalbumin, Urine 9.4 ug/mL (Not Estab.)
[2019-10-28 16:28] LABS: Vitamin D 25 Hydroxy 31.9 ng/mL (30.0-100.0)
== END ==
PROVIDERS: Visit Provider Emergency Medicine
DX: E11.9 Type 2 diabetes mellitus without complications (principal); Z79.4 Long term (current) use of insulin; Z79.899 Other long term (current) drug therapy
CPT/HCPCS: 80053; 80061; 82043; 82570; 82652; 83036; 84439; 84443; 85025

== ENCOUNTER → 2019-11-11 12:00 | Outpatient (CLI) | payer OTHER, SELFPAY ==
--- NOTE | 2019-11-11 12:09 | XR_ITS ---
PROCEDURE: XR KNEE RT 4V CLINICAL INDICATION: right knee pain COMPARISON: No exams were available for comparison FINDINGS: No fracture or dislocation. No lytic or blastic change. There is normal mineralization. There are moderate to severe osteoarthritic changes of the medial compartment with mild osteoarthritic change of the patellofemoral joint. There are mild osteoarthritic changes also of the lateral compartment. There are some bony hypertrophic changes at the tibiofibular junction Other findings:None. 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
== END ==
PROVIDERS: PCP Emergency Medicine; Visit Provider Orthopaedic Surgery
DX: M25.561 Pain in right knee (principal)
CPT/HCPCS: 73564

== ENCOUNTER → 2020-05-30 15:31 | Outpatient (CLI) | payer OTHER, SELFPAY ==
[2020-05-30 15:59] LABS: Basophils # 0.1 K/mm3 (0-0.2); Basophils % 0.7 % (0.1-2.0); Eosinophils # 0.4 K/mm3 (0.0-0.4); Eosinophils % 4.4 % (0.1-12.0); Hematocrit 42.4 % (42.0-52.0); Hemoglobin 14.9 g/dL (14.1-18.0); Lymphocytes # 2.4 K/mm3 (0.7-4.5); Lymphocytes % 29.5 % (10-50); Mean Corpuscular HGB Conc 35.1 g/dL (31.8-35.4); Mean Corpuscular Hemoglobin 31.2 pg (27.0-31.2); Mean Corpuscular Volume 88.9 fl (80-94); Monocytes # 0.5 K/mm3 (0.1-1.0); Monocytes % 6.1 % (1.7-9.3); Neutrophils # 4.8 K/mm3 (1.8-7.8); Neutrophils % 59.3 % (37.0-80.0); Platelet Count 234 K/mm3 (142-424); Red Blood Count 4.77 M/mm3 (4.60-6.20); Red Cell Distribution Width 13.7 % (11.5-17.5)
[2020-05-30 16:09] LABS: Alanine Aminotransferase 82 U/L (12-78); Albumin Level 4.6 g/dl (3.5-5.0); Albumin/Globulin Ratio 1.7 (1.1-1.8); Alkaline Phosphatase 104 U/L (38-126); Anion Gap 18.6 mEq/L (5-15); Aspartate Amino Transferase 60 U/L (17-59); Bilirubin,Total 0.4 mg/dl (0.2-1.3); Blood Urea Nitrogen 14 mg/dl (9-20); Calcium 10.1 mg/dl (8.4-10.2); Carbon Dioxide 23 mmol/L (22.0-30.0); Chloride 104 mmol/L (98-107); Chol/HDL Ratio 4.6 (1-3.5); Cholesterol 152 mg/dl (140-200); Estimated Glomerular Filt Rate 114 ml/min (>60); GFR (African American) 137 ML/MIN (>60); Globulin 2.7 g/dL (1.3-3.2); Glucose 229 mg/dl (74-100); HDL Cholesterol 33 mg/dl (40-60); Potassium 4.6 mmoL/L (3.5-5.1); Sodium 141 mmol/L (136-145); Total Protein,Serum 7.3 g/dl (6.3-8.2); Triglycerides 162 mg/dl (30-150); VLDL Cholesterol 32 mg/dL (0-40)
[2020-05-30 16:20] LABS: Direct LDL Cholesterol 102.16 mg/dL (100-129)
[2020-05-30 16:25] LABS: Amphetamine/Metha Screen,Urine Negative ng/ml (<1000)
[2020-05-30 16:26] LABS: Barbiturates Screen,Urine Negative ng/ml (<200); Benzodiazepines Screen,Urine Negative ng/ml (<200)
[2020-05-30 16:27] LABS: 25-OH Vitamin D, Total 40.9 ng/mL (30-100); Cannabinoid Screen,Urine Negative ng/ml (<50); Free T4 (Free Thyroxine) 0.84 ng/dl (0.78-2.19)
[2020-05-30 16:28] LABS: Cocaine Screen,Urine Negative ng/ml (<300); Methadone Screen,Urine Negative ng/ml (<300)
[2020-05-30 16:29] LABS: Opiate Screen,Urine Positive ng/ml (<300)
[2020-05-30 16:30] LABS: Phencyclidine Screen,Urine Negative ng/ml (<25)
[2020-05-30 16:40] LABS: Thyroid Stimulating Hormone 2.17 uIU/mL (0.465-4.68)
[2020-05-30 16:42] LABS: Microalbumin/Creatinine Ratio 13.1
[2020-05-30 16:46] LABS: Creatinine,Urine Random 102 mg/dL (Not Estab.); Hemoglobin A1C 8.9 % (4.0-6.0)
== END ==
PROVIDERS: Visit Provider Emergency Medicine
DX: E11.40 Type 2 diabetes mellitus with diabetic neuropathy, unspecified (principal); G62.9 Polyneuropathy, unspecified; E55.9 Vitamin D deficiency, unspecified; Z79.899 Other long term (current) drug therapy; M54.31 Sciatica, right side; M54.32 Sciatica, left side
CPT/HCPCS: 80053; 80061; 80305; 82043; 82306; 82570; 83036; 84439; 84443; 85025

== ENCOUNTER → 2020-10-12 13:50 | Outpatient (CLI) | payer MEDICARE, OTHER, SELFPAY ==
--- NOTE | 2020-10-12 14:01 | XR_ITS ---
PROCEDURE: XR KNEE RT 4V XR KNEE LT 4V Referring Doctor: Asa Tidwell Patient Age:64Y CLINICAL INDICATION: right knee pain chronic right knee pain 2 years. No known trauma or injury Chronic knee pain COMPARISON: CR XR KNEE RT 4V from 11/11/2019 CR XR KNEE LT 4V from 10/12/2020 TECHNIQUE: 4 views both right and left knee/weight-bearing 4 view included: Weight-bearing AP and lateral standing; with standing PA [place]right; along with sunrise patellar view FINDINGS: Right knee: Prominent marked narrowing medial compartment with [id number] or near bone on bone appearance.. The. Marginal osteophytes are most evident about the medial compartment period also some marginal osteophytes about about intracondylar notch region with minimal marginal osteophytes at patella.. The lateral compartment is well maintained with only mild sharpening at its margin. Mild degenerative changes at tibial-fibular articulation noted-manifest by a few small degenerative cyst as well as some mild hypertrophy at the tibial fibular articulation The patellofemoral joint with satisfactory relationships.. Only scant increased joint fluid. Faint atherosclerotic calcification posterior to the knee the noted may reflect diabetes . . Left knee:. Prominent narrowing of the medial compartment of the left knee-it narrows to less than 1 mm. Sclerotic changes at the medial femoral condyle associated suspect minor osteochondral irregularity or degenerative cyst at the medial femoral condyle The lateral joint space well maintained unremarkable. Tricompartmental marginal osteophytes are most evident about the medial compartment, medial margin of tibia. Also small marginal osteophytes at patellofemoral joint. Satisfactory patellofemoral relationships.. Slight scant increased joint fluid suprapatellar bursa On the lateral film there is slight osseous bulging from the posterior aspect of the proximal tibia likely reflects a broad-based exostosis most likely extending from the posterior aspect of the the the the the the the the medial metaphysis IMPRESSION: Right knee.-Prominent degenerative changes right knee. . Severe narrowing and arthritic changes most evident at medial compartment . Mild degenerative changes patellofemoral joint and elsewhere at the knee period.. Left knee.-prominent degenerative changes left knee the Pronounced degenerative changes at the medial compartment left knee. Although medial a joint space narrowing not quite as severe on left would note there is more evident sclerosis at femoral condyle the the, with a suggestion of small a minor a irregularity at the articular cortex, mid left femoral condyle. Osseous bulging likely reflecting smooth exostosis from the posterior aspect proximal left tibial metaphysis the Dictated by: Eric Quevedo MD 10/17/2020 18:22 Eric Quevedo MD in [place] 10/17/2020 18:22
== END ==
PROVIDERS: PCP Emergency Medicine; Visit Provider Orthopaedic Surgery
DX: M25.562 Pain in left knee (principal); G89.29 Other chronic pain; M17.11 Unilateral primary osteoarthritis, right knee
CPT/HCPCS: 73564

== ENCOUNTER → 2020-11-07 06:17 | Outpatient (CLI) | payer MEDICARE, OTHER, SELFPAY ==
--- NOTE | 2020-11-07 06:19 | CA_ITS ---
APPROVED REPORT Exam: Pharmacologic Technologist: Liz Galindo, Ht: 6 ft 0 in Wt: 267 lbs BSA: 2.41 m2 HR: 70 bpm BP: 98/63 mmHg Indications: Shortness of Air Medical History Medications: Lisinopril,,,,, Omeprazole,,,,, Clonidine,,,,, Aspirin,,,,, Metformin,,,,, Gabapentin,,,,, Atorvastatin,,,,, Glimepiride,,,,, Carvedilol,,,,, Albuterol,,,,, Januvia,,,,, Granby,,,,, Stress Test Details Test: LEXISCAN HR Resting HR: 71 bpm Max Heart Rate (APMHR): 155 bpm Max HR Achieved: 86 bpm Target HR (85% APMHR): 131 bpm % of APMHR: 55 Recovery HR: 83 bpm BP Resting BP: 98/63 mmHg Max BP: 108/72 mmHg Recovery BP: 105.0/75.0 mmHg ECG Resting ECG: Sinus Rhythm with RBBB Clinical Exercise duration: 04:00 min Highest Stage Achieved: Exercise capacity: 1.0 METs Stress ECG Conclusion Lexiscan portion complete. Pt c/o Shortness of breath during peak infusion. Symptoms: No CP. (+) SOB during peak infusion. Resolved in recovery. Arrhythmias/Ectopy: Occ PVC. Occ PAC. ST-T Changes: Less than 1.5mm ST depression. Conclusion: Images to follow. Electronically signed by : Miguel Cochran, 11/07/2020 19:18:43
--- NOTE | 2020-11-07 06:19 | NM_ITS ---
APPROVED REPORT Exam: Nuclear Stress Test Indication: SOB, CAD, HTN, DM, High cholesterol, Family history Patient Location: Outpatient Stress Tech: Liz Galindo [place] Tech:Yanely Desir, ARRT, RT (R)(N) Ht: 6 ft 0 in Wt: 267 lbs HR: 70 bpm BP: 98/63 mmHg BSA: 2.41 m2 History: SOB, CAD, HTN, DM, High cholesterol, Family history Procedure: Patient received a 0.4 mg of intravenous Lexiscan, resting heart rate 70 bpm, resting blood pressure 98/63 mmHg, with Lexiscan maximum heart rate achived was 86 bpm which is Less than 85 % of the maximum predicted heart rate and blood pressure was 106/59 mmHg. With Lexiscan, patient denied any complaint of chest pain. Electrocardiogram Resting electrocardiogram showed sinus rhythm right bundle branch block, with Lexiscan there is less than 1.[address] segment depression noted from the baseline EKG. The EKG portion of the Lexiscan is nondiagnostic. Cardiac Stress and Resting SPECT Images: Cardiac Stress and Resting SPECT images were obtained using technetium 99m Myoview 30.7 mCi stress and 10.11 mCi at rest. Gated SPECT for analysis of segmental wall motion and calculation of the ejection fraction also done. Cardiac stress and rest SPECT images show uniform myocardial activity without segmental perfusion abnormality, computer derived ejection fraction 53% with no regional wall motion abnormality, right ventricle is mildly enlarged with normal contractility. Conclusion: 1. The EKG portion of the Lexiscan is nondiagnostic. 2. No scintigraphic evidence of reversible ischemia seen, computer derived ejection fraction is 53% with no regional wall motion abnormality, right ventricle is mildly enlarged with normal contractility. 3. Normal Lexiscan Myoview study. Electronically signed by : Miguel Cochran, 11/07/2020 19:27:41
--- NOTE | 2020-11-07 06:19 | CA_ITS ---
APPROVED REPORT EXAM: Comprehensive 2D, Doppler, and color-flow Echocardiogram Fast Food Delivery Driver: Flor Wills RVT Ht: 6 ft 0 in Wt: 267lbs BSA: 2.41 BP: 158/88 mmHg Indications: SOA,CAD,RBBB,GERD,DM,COPD,HTN,HLD TDS-PT BODY HABITUS 2D Dimensions LVOT 1.96 cm (M/F) 1.5-2.5 LA Volume 35.40 mL LA Volume Index 14.68 mL/m2 (M/F) 16-34 M-Mode Dimensions RVDd 3.66 cm (0.9-2.6) LA Diam 3.88 cm (1.9-4.0) LVDd 4.96 cm (3.5-5.7) Ao Diam 3.18 cm (2.0-3.7) LVDs 3.21 cm (3.5-5.7) IVSd 1.65 cm (0.6-1.1) PWd 1.07 cm (0.6-1.1) EF (Teich) 64.40% FS 35.30% EDV (Teich) 116.10 mL ESV (Teich) 41.30 mL LV Diastology E Decel Time 160.00 (160-240 msec) E/A Ratio 1.1 MED E' 8.50 (< 7 cm/sec) E'/MED E' Ratio 8.55 (>14) LAT E' 8.00 (<10 cm/sec) E/LAT E' Ratio 9.09 (>14) Mitral Valve MV E Max Ron. 73.00 (40-130 cm/s) MV A Velocity 65.00 (40-130 cm/s) E/A Ratio 1.11 MV Decel. Time 160.00 (160-240 ms) MV PHT 47.00 ms Pulmonary Valve PV Peak Velocity 65.00 (50-150 cm/s) Tricuspid Valve TR P. Velocity 103.00 cm/s RAP Estimate 10.00 mmHg RVSP 14.30 mmHg Left Ventricle Left atrium is mildly enlarged, left ventricle is normal size, mild concentric left ventricular hypertrophy seen, visually estimated ejection fraction 55% with no regional wall motion abnormality, grade 1 diastolic dysfunction seen without tissue Doppler evidence of raise left atrial pressure. Right Ventricle Right atrium and right ventricle are mildly enlarged with normal contractility. Aortic Valve Aortic valve is minimally thickened and fibrosed, there is no aortic stenosis or aortic insufficiency. Mitral Valve Mitral valve is grossly normal, there is mild mitral regurgitation. Tricuspid Valve Tricuspid valve grossly normal, there is mild tricuspid regurgitation, tricuspid regurgitation jet velocity is inadequate for calculation of the right ventricular systolic pressure. Pulmonic Valve Pulmonic valve is poorly visualized. Great Vessels Aortic root is normal size. Pericardium No significant pericardial effusion noted. Conclusion 1. Mild biatrial enlargement, normal left ventricular size, mild concentric left ventricular hypertrophy, visually estimated ejection fraction 55% with no regional wall motion abnormality, grade 1 diastolic dysfunction seen without tissue Doppler evidence of raise left atrial pressure. 2. Mildly enlarged right ventricle with normal contractility. 3. Mild mitral and tricuspid regurgitation. 4. No significant pericardial effusion noted. Electronically signed by : Miguel Cochran, 11/07/2020 18:42:01
--- NOTE | 2020-11-07 06:19 | CA_ITS ---
APPROVED REPORT Patient Support Partner: Nohemi Sandoval RT(R) Laterality: Bilateral Indications: dizziness Risk Factors Hypertension: Hyperlipidemia Diabetes Doppler Spectral Velocity Analysis ECA (R) 107.10/14.60 cm/s ECA (L) 103.30/14.20 cm/s dICA (R) 70.30/28.40 cm/s dICA (L) 85.30/34.40 cm/s Chaitanya (R) 63.60/18.70 cm/s Chaitanya (L) 66.60/25.40 cm/s pICA (R) 117.40/39.40 cm/s pICA (L) 47.60/18.20 cm/s dCCA (R) 55.70/17.10 cm/s dCCA (L) 65.10/17.20 cm/s pCCA (R) 83.10/14.60 cm/s pCCA (L) 76.30/18.70 cm/s Vert (R) 45.60/16.50 cm/s Vert (L) 31.00/10.20 cm/s ICA/CCA 2.10 ICA/CCA 1.31 Findings Duplex evaluation demonstrates stenosis of the right proximal internal carotid artery in the range of 20-49% with PSV <140 cm/sec, EDV <100 cm/sec, and IC/CC Ratio <4.0. Duplex evaluation demonstrates stenosis of the left proximal internal carotid artery in the range of 20-49% with PSV <140 cm/sec, EDV <100 cm/sec, and IC/CC Ratio <4.0. Conclusion Duplex evaluation demonstrates stenosis of the right proximal internal carotid artery in the range of 20-49% with PSV <140 cm/sec, EDV <100 cm/sec, and IC/CC Ratio <4.0. Duplex evaluation demonstrates stenosis of the left proximal internal carotid artery in the range of 20-49% with PSV <140 cm/sec, EDV <100 cm/sec, and IC/CC Ratio <4.0. Electronically signed by : Rufino Guthrie MD 11/07/2020 17:20:58
--- NOTE | 2020-11-07 08:15 | HMH.ITSHM ---
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 []SITAGLIPTIN OMEPRAZOLE METFORMIN LISINOPRIL HYDROCODONE GLIMEPIRIDE GABAPENTIN CLONIDINE CETIRIZINE CARVEDILOL ATORVASTATIN ASA ALBUTEROL FLUTICASONE
== END ==
PROVIDERS: PCP Emergency Medicine; Visit Provider Internal Medicine
DX: R06.00 Dyspnea, unspecified (principal); R42 Dizziness and giddiness
CPT/HCPCS: 78452; 93017; 93306; 93880; A9502; J2785

== ENCOUNTER → 2020-11-23 18:45 | Outpatient (CLI) | payer MEDICARE, OTHER, SELFPAY ==
[2020-11-23 18:59] LABS: Alanine Aminotransferase 70 U/L (12-78); Albumin Level 4.5 g/dl (3.5-5.0); Albumin/Globulin Ratio 1.6 (1.1-1.8); Alkaline Phosphatase 92 U/L (38-126); Anion Gap 15.3 mEq/L (5-15); Aspartate Amino Transferase 49 U/L (17-59); Bilirubin,Total 0.5 mg/dl (0.2-1.3); Blood Urea Nitrogen 14 mg/dl (9-20); Calcium 9.9 mg/dl (8.4-10.2); Carbon Dioxide 21 mmol/L (22.0-30.0); Chloride 108 mmol/L (98-107); Chol/HDL Ratio 3.8 (1-3.5); Cholesterol 121 mg/dl (140-200); Estimated Glomerular Filt Rate 75 ml/min (>60); GFR (African American) 91 ML/MIN (>60); Globulin 2.8 g/dL (1.3-3.2); Glucose 193 mg/dl (74-100); HDL Cholesterol 32 mg/dl (40-60); Potassium 4.3 mmoL/L (3.5-5.1); Sodium 140 mmol/L (136-145); Total Protein,Serum 7.3 g/dl (6.3-8.2); Triglycerides 132 mg/dl (30-150); VLDL Cholesterol 26 mg/dL (0-40)
[2020-11-23 19:02] LABS: Basophils # 0.1 K/mm3 (0-0.2); Basophils % 0.6 % (0.1-2.0); Eosinophils # 0.3 K/mm3 (0.0-0.4); Eosinophils % 3.3 % (0.1-12.0); Hematocrit 44.2 % (42.0-52.0); Hemoglobin 14.9 g/dL (14.1-18.0); Lymphocytes # 2.5 K/mm3 (0.7-4.5); Lymphocytes % 30.5 % (10-50); Mean Corpuscular HGB Conc 33.6 g/dL (31.8-35.4); Mean Corpuscular Hemoglobin 30.2 pg (27.0-31.2); Mean Corpuscular Volume 89.9 fl (80-94); Mean Platelet Volume 8.7 fl (7.4-10.4); Monocytes # 0.5 K/mm3 (0.1-1.0); Monocytes % 5.5 % (1.7-9.3); Neutrophils # 4.9 K/mm3 (1.8-7.8); Neutrophils % 60.2 % (37.0-80.0); Platelet Count 234 K/mm3 (142-424); Red Blood Count 4.92 M/mm3 (4.60-6.20); Red Cell Distribution Width 13.6 % (11.5-17.5); White Blood Count 8.2 K/mm3 (4.8-10.8)
[2020-11-23 19:11] LABS: Direct LDL Cholesterol 69.93 mg/dL (100-129)
[2020-11-23 19:17] LABS: Free T4 (Free Thyroxine) 0.87 ng/dl (0.78-2.19)
[2020-11-23 19:31] LABS: Prostate Specific Ag Screen 0.6 ng/ml (0.0-4.0); Thyroid Stimulating Hormone 1.86 uIU/mL (0.465-4.68)
[2020-11-23 20:22] LABS: Hemoglobin A1C 8.7 % (4.0-6.0)
== END ==
PROVIDERS: Visit Provider Emergency Medicine
DX: E11.9 Type 2 diabetes mellitus without complications (principal); Z12.5 Encounter for screening for malignant neoplasm of prostate; Z79.84 Long term (current) use of oral hypoglycemic drugs
CPT/HCPCS: 80053; 80061; 83036; 84439; 84443; 85025; G0103

== ENCOUNTER → 2021-01-06 07:09 | Outpatient (CLI) | payer MEDICARE, SELFPAY ==
[2021-01-06 08:08] LABS: Alanine Aminotransferase 67 U/L (12-78); Albumin Level 4.5 g/dl (3.5-5.0); Alkaline Phosphatase 75 U/L (38-126); Aspartate Amino Transferase 40 U/L (17-59); Bilirubin,Direct 0.1 mg/dl (0.0-0.4); Bilirubin,Indirect 0.5 mg/dL (0.0-0.9); Bilirubin,Total 0.6 mg/dl (0.2-1.3); Bilirubin,Unconjugated 0.5 mg/dL (0.0-1.1); Chol/HDL Ratio 3.8 (1-3.5); Cholesterol 120 mg/dl (140-200); HDL Cholesterol 32 mg/dl (40-60); Total Protein,Serum 6.8 g/dl (6.3-8.2); Triglycerides 103 mg/dl (30-150); VLDL Cholesterol 21 mg/dL (0-40)
[2021-01-06 08:19] LABS: Direct LDL Cholesterol 71.99 mg/dL (100-129)
== END ==
PROVIDERS: Visit Provider Physician Assistant
DX: I11.9 Hypertensive heart disease without heart failure (principal); E11.9 Type 2 diabetes mellitus without complications; E66.9 Obesity, unspecified; E78.2 Mixed hyperlipidemia; I25.10 Atherosclerotic heart disease of native coronary artery without angina pectoris; I45.10 Unspecified right bundle-branch block; J44.9 Chronic obstructive pulmonary disease, unspecified; R06.02 Shortness of breath; Z79.84 Long term (current) use of oral hypoglycemic drugs
CPT/HCPCS: 36415; 80061; 80076

== ENCOUNTER 2021-01-09 15:40 | Emergency (ER) | payer MEDICARE, SELFPAY ==
[2021-01-09 15:42] VITALS: BP 199/113; PULSE 73; RESP 18; TEMP 36.8; O2SAT 96; BMI 36.6
--- NOTE | 2021-01-09 16:10 | CT_ITS ---
PROCEDURE: CT HEAD/BRAIN WO CON CLINICAL INDICATION: POSSIBLE cva COMPARISON: No exams were available for comparison TECHNIQUE: Axial images obtained. All CT scans at the facility use one or more dose reduction, viz: automated exposure control, ma/kV adjustment per patient size (including targeted exams where dose is matched to indication, i.e. head), or iterative reconstruction technique. FINDINGS: There is a 6x 5 mm rounded area of increased density along the medial aspect of the left temporal lobe best demonstrated on image 19 series 2. No midline shift mass effect hydrocephalus or intra or extra-axial fluid collection is evident. There is mild mucosal thickening of the ethmoid and sphenoid sinus and frontal sinus. No mastoid effusion is evident. IMPRESSION: 1. Small hyperdensity medial aspect left temporal lobe. Etiology is uncertain. This could represent a small focal area of hemorrhage, thrombosed aneurysm, or as small extra-axial lesion such as a meningioma. Consider CT angiogram of the head with also a regular post enhanced head CT for further evaluation 2. Some sinus disease Dictated by: Rufino Guthrie MD 01/09/2021 16:31 Rufino Guthrie MD in [place] 01/09/2021 16:31
--- NOTE | 2021-01-09 16:17 | CT_ITS ---
PROCEDURE INFORMATION: Exam: CT Angiography Neck With Contrast Exam date and time: 01/09/2021 4:17 PM Age: 65 years old Clinical indication: Other: Right sided facial drooping; Additional info: Right sided facial droop TECHNIQUE: Imaging protocol: Computed tomography angiography of the neck with contrast. 3D rendering (Not supervised by radiologist): MIP and/or 3D reconstructed images were created by the technologist. Radiation optimization: All CT scans at this facility use at least one of these dose optimization techniques: automated exposure control; mA and/or kV adjustment per patient size (includes targeted exams where dose is matched to clinical indication); or iterative reconstruction. Contrast material: ISOVUE 370; Contrast volume: 100 ml; Contrast route: INTRAVENOUS (IV); COMPARISON: US ARTERIAL CAROTID 07/03/2016 11:27 AM FINDINGS: Right common carotid artery: No stenosis. No dissection or occlusion. Right internal carotid artery: There is calcified and noncalcified plaque in the proximal right internal carotid artery with less than 30% stenosis. Right external carotid artery: No occlusion or stenosis of the origin. Right vertebral artery: There is calcified plaque at the origin of the right vertebral artery with moderate stenosis. No distal stenosis. No dissection. Left common carotid artery: No stenosis. No dissection or occlusion. Left internal carotid artery: There is calcified plaque in the proximal left internal carotid artery with less than 20%, stenosis. Left external carotid artery: No occlusion or stenosis of the origin. Left vertebral artery: There is calcified plaque at the origin of the left vertebral artery with moderate stenosis. No distal stenosis. No dissection. Bones/joints: No acute fracture. Soft tissues: Normal. No significant soft tissue swelling. Lymph nodes: There is a calcified mediastinal lymph nodes. There are small noncalcified superior mediastinal lymph nodes. No significantly enlarged lymph nodes. IMPRESSION: 1. Carotid bifurcation plaque with mild, less than 30%, stenosis of the proximal internal carotid arteries. 2. Moderate bilateral vertebral artery origin stenosis. REFERENCES: NASCET CRITERIA. The degree of internal carotid artery stenosis is based on NASCET criteria. Normal is no stenosis. Mild is less than 50% stenosis. Moderate is 50-69% stenosis. Severe is 70% to 99% stenosis. Total occlusion is no detectable patent lumen.
--- NOTE | 2021-01-09 16:17 | CT_ITS ---
PROCEDURE INFORMATION: Exam: CT Angiography Head With Contrast, Arteriography Exam date and time: 01/09/2021 4:17 PM Age: 65 years old Clinical indication: Other: Right sided facial drooping; Additional info: Right sided facial droop TECHNIQUE: Imaging protocol: Computed tomography angiography of the head with contrast. Exam focused on the arteries. 3D rendering (Not supervised by radiologist): MIP and/or 3D reconstructed images were created by the technologist. Radiation optimization: All CT scans at this facility use at least one of these dose optimization techniques: automated exposure control; mA and/or kV adjustment per patient size (includes targeted exams where dose is matched to clinical indication); or iterative reconstruction. Contrast material: ISOVUE 370; Contrast volume: 100 ml; Contrast route: INTRAVENOUS (IV); COMPARISON: CT HEAD/BRAIN WO CON 01/09/2021 4:10 PM FINDINGS: ANTERIOR CIRCULATION: Right internal carotid artery: Unremarkable. Intracranial segment is patent with no significant stenosis. No aneurysm. Right middle cerebral artery: Unremarkable. No occlusion or significant stenosis. No aneurysm. Right anterior cerebral artery: Unremarkable. No occlusion or significant stenosis. No aneurysm. Left internal carotid artery: Unremarkable. Intracranial segment is patent with no significant stenosis. No aneurysm. Left middle cerebral artery: Unremarkable. No occlusion or significant stenosis. No aneurysm. Left anterior cerebral artery: Unremarkable. No occlusion or significant stenosis. No aneurysm. POSTERIOR CIRCULATION: Right vertebral artery: Unremarkable. No occlusion or significant stenosis. No aneurysm. Left vertebral artery: Unremarkable. No occlusion or significant stenosis. No aneurysm. Basilar artery: Unremarkable. No occlusion or significant stenosis. No aneurysm. Right posterior cerebral artery: Unremarkable. No occlusion or significant stenosis. No aneurysm. Left posterior cerebral artery: Unremarkable. No occlusion or significant stenosis. No aneurysm. Brain: No definite mass, mass effect, or midline shift. Cerebral ventricles: No ventriculomegaly. Bones/joints: The left medial temporal hyperdensity reported on the noncontrast head CT is seen on the current study to be slightly prominent choroid in the left choroid fissure. This is a normal variant. Soft tissues: Unremarkable. IMPRESSION: No arterial abnormality.. No aneurysm.
--- NOTE | 2021-01-09 16:19 | HMH.EDGENADL ---
ED Disposition Clinical Impression: Perrin's palsy Disposition: Home, Self-Care Condition on Discharge: Good Instructions: DI for Muscle Weakness Prescriptions: predniSONE [Prednisone 20mg Tab] 60 mg PO DAILY 6 Days #18 tab Transmission Status: Pending to Clinic Pharm[facility] Valacyclovir HCl [Valacyclovir] 1,000 mg PO TID 7 Days #21 tab Transmission Status: Pending to Clinic Pharm[facility] Referrals: Kareem Sheridan MD [Primary Care Provider] - Time of Disposition: 18:04 - Critical Care Critical Care Time: No Attestation: On 01/09/21, the high probability of a clinically significant, sudden or life threatening deterioration of the following system(s) required my full and direct attention, intervention and personal management. The time I documented below is in addition to time spent performing reported procedures but includes the following listed in this critical care notation. Medical Decision Making - Medical Records Medical records reviewed: Yes: I reviewed the patient's medical records. - Jun Inquiry Pt receiving controlled substance: No Vital Signs: 01/09/21 15:42 01/09/21 17:25 Temperature 98.2 F Temperature Source Oral Pulse Rate 72 Pulse Rate [Left Radial] 73 Respiratory Rate 18 Blood Pressure 158/95 H Blood Pressure [Right Arm] 199/113 H Blood Pressure Mean [Right Arm] 141 Blood Pressure Source Automatic Cuff Blood Pressure Source [Right Arm] Automatic Cuff Blood Pressure Position Sitting Blood Pressure Position [Right Arm] Sitting 02 Sat by Pulse Oximetry 96 96 Oxygen Delivery Method Room Air Room Air - Lab Data Lab Results 01/09/21 16:06: WBC 8.3, RBC 4.79, Hgb 14.1, Hct 42.2, MCV 88.1, MCH 29.5, MCHC 33.4, RDW 13.9, Plt Count 229, MPV 7.8, Neut % (Auto) 63.4, Lymph % (Auto) 26.5, Ritchie % (Auto) 5.5, Eos % (Auto) 3.9, Baso % (Auto) 0.6, Neut # (Auto) 5.3, Lymph # (Auto) 2.2, Ritchie # (Auto) 0.5, Eos # (Auto) 0.3, Baso # (Auto) 0.1 01/09/21 16:06: PT 11.1, INR 0.94 01/09/21 16:06: Sodium 140, Potassium 4.0, Chloride 107, Carbon Dioxide 23, Anion Gap 14.0, BUN 12, Creatinine 0.80, Estimated GFR 97, Est GFR ( Amer) 117, Glucose 202 H, Calcium 9.7, Total Bilirubin 0.5, AST 41, ALT 66, Alkaline Phosphatase 105, Total Protein 7.0, Albumin 4.5, Globulin 2.5, Albumin/Globulin Ratio 1.8 Result diagrams: 01/09/21 16:06 01/09/21 16:06 Orders (Tests/Meds): ED MEDICATIONS Discontinued Medications Generic Name Dose Route Start Last Admin Trade Name Freq PRN Reason Stop Dose Admin Iopamidol 100 ml 01/09/21 16:45 01/09/21 16:40 Iopamidol-370 (76%);100ml Bottle IV 01/09/21 16:46 100 ml ONCE ONE Administration Sodium Chloride 40 ml 01/09/21 16:45 01/09/21 16:40 0.9 % Sodium Chloride 50 Ml Vial IV 01/09/21 16:46 40 ml ONCE ONE Administration Sodium Chloride 10 ml 01/09/21 16:45 01/09/21 16:40 Sodium Chloride 0.9% 10ml Syr (Rad Only) IV 01/09/21 16:46 10 ml ONCE ONE Administration Medical Decision Narrative: 65-year-old male who presents with right-sided facial droop. Patient has involvement of the forehead and appears to have a Perrin's palsy on exam as the rest of his neurologic exam is nonfocal. He is outside the 24-hour stroke window but with his high risk factors he will be scanned to rule out bleed versus stroke. CTA of the head and neck demonstrate no acute bleeding or vascular abnormality other than plaque in the carotids. There is concern for an ischemic focus on the noncontrast head CT but the CTA confirmed that this was a choroid abnormality and not ischemic in nature. Patient was discussed with Dr. Castro at [facility] neurology who recommended treatment with Perrin's palsy antivirals and steroids and follow-up with primary care. No other significant laboratory data abnormalities. Patient will be given 60 mg of prednisone here today and a prescription for prednisone and acyclovir and instructed to follow-up with
[2021-01-09 16:28] LABS: Basophils # 0.1 K/mm3 (0-0.2); Basophils % 0.6 % (0.1-2.0); Eosinophils # 0.3 K/mm3 (0.0-0.4); Eosinophils % 3.9 % (0.1-12.0); Hematocrit 42.2 % (42.0-52.0); Hemoglobin 14.1 g/dL (14.1-18.0); Lymphocytes # 2.2 K/mm3 (0.7-4.5); Lymphocytes % 26.5 % (10-50); Mean Corpuscular HGB Conc 33.4 g/dL (31.8-35.4); Mean Corpuscular Hemoglobin 29.5 pg (27.0-31.2); Mean Corpuscular Volume 88.1 fl (80-94); Mean Platelet Volume 7.8 fl (7.4-10.4); Monocytes # 0.5 K/mm3 (0.1-1.0); Monocytes % 5.5 % (1.7-9.3); Neutrophils # 5.3 K/mm3 (1.8-7.8); Neutrophils % 63.4 % (37.0-80.0); Platelet Count 229 K/mm3 (142-424); Red Blood Count 4.79 M/mm3 (4.60-6.20); Red Cell Distribution Width 13.9 % (11.5-17.5); White Blood Count 8.3 K/mm3 (4.8-10.8)
[2021-01-09 16:40] LABS: Alanine Aminotransferase 66 U/L (12-78); Albumin Level 4.5 g/dl (3.5-5.0); Albumin/Globulin Ratio 1.8 (1.1-1.8); Alkaline Phosphatase 105 U/L (38-126); Aspartate Amino Transferase 41 U/L (17-59); Bilirubin,Total 0.5 mg/dl (0.2-1.3); Blood Urea Nitrogen 12 mg/dl (9-20); Calcium 9.7 mg/dl (8.4-10.2); Carbon Dioxide 23 mmol/L (22.0-30.0); Chloride 107 mmol/L (98-107); Estimated Glomerular Filt Rate 97 ml/min (>60); GFR (African American) 117 ML/MIN (>60); Globulin 2.5 g/dL (1.3-3.2); Glucose 202 mg/dl (74-100); Sodium 140 mmol/L (136-145)
[2021-01-09 17:00] LABS: INR 0.94 (0.9-1.1); Prothrombin Time 11.1 seconds (10.1-12.5)
--- NOTE | 2021-01-09 17:14 | PC.NURSE ---
[facility] called and spoke to Dr Mcconnell
[2021-01-09 17:25] VITALS: BP 158/95; PULSE 72; O2SAT 96
[2021-01-09 17:31] VITALS: BP 175/104; PULSE 66; O2SAT 96
--- NOTE | 2021-01-09 17:31 | PC.NURSE ---
CHEO ALVAREZ speaking with Dr howell at
[2021-01-09 18:45] VITALS: BP 164/84; PULSE 71; RESP 18; TEMP 36.8; O2SAT 96
== END 2021-01-09 18:46 | disposition home or self-care (01) ==
PROVIDERS: Emergency Provider Student in an Organized Health Care Education/Training Program; PCP Emergency Medicine
DX: G51.0 Bell's palsy (principal); I10 Essential (primary) hypertension; I25.2 Old myocardial infarction; E11.9 Type 2 diabetes mellitus without complications; E78.5 Hyperlipidemia, unspecified; J44.9 Chronic obstructive pulmonary disease, unspecified; F17.290 Nicotine dependence, other tobacco product, uncomplicated; Z88.0 Allergy status to penicillin; Z21 Asymptomatic human immunodeficiency virus [HIV] infection status; I25.10 Atherosclerotic heart disease of native coronary artery without angina pectoris
CPT/HCPCS: 70450; 70496; 70498; 80053; 85025; 85610; 99282; Q9967

== ENCOUNTER → 2021-02-01 07:08 | Outpatient (CLI) | payer MEDICARE, MEDICAID, SELFPAY | PROVIDERS: Visit Provider Specialist | DX: G51.0 Bell's palsy (principal) | CPT/HCPCS: 36415; 86618 ==

== ENCOUNTER → 2021-05-10 14:49 | Outpatient (CLI) | payer MEDICARE, MEDICAID, SELFPAY ==
[2021-05-10 15:45] LABS: Amphetamine/Metha Screen,Urine Negative ng/ml (<1000); Barbiturates Screen,Urine Negative ng/ml (<200)
[2021-05-10 15:47] LABS: Benzodiazepines Screen,Urine Negative ng/ml (<200)
[2021-05-10 15:48] LABS: Cannabinoid Screen,Urine Negative ng/ml (<50)
[2021-05-10 15:49] LABS: Cocaine Screen,Urine Negative ng/ml (<300); Methadone Screen,Urine Negative ng/ml (<300)
[2021-05-10 15:50] LABS: Opiate Screen,Urine Positive ng/ml (<300); Phencyclidine Screen,Urine Negative ng/ml (<25)
== END ==
PROVIDERS: Visit Provider Emergency Medicine
DX: M54.16 Radiculopathy, lumbar region (principal)
CPT/HCPCS: 80305

== ENCOUNTER → 2021-06-20 13:30 | Outpatient (CLI) | payer MEDICARE, SELFPAY ==
--- NOTE | 2021-06-20 13:34 | XR_ITS ---
PROCEDURE: XR KNEE LT 4V CLINICAL INDICATION: left knee pain COMPARISON: CR XR KNEE RT 4V from 11/11/2019 CR XR KNEE RT 4V from 10/12/2020 CR XR KNEE LT 4V from 10/12/2020 FINDINGS: Severe osteoarthritic changes are present at the left medial compartment with moderate osteoarthritic changes of the patellofemoral joint and mild osteoarthritis of the lateral compartment. There appears to been further loss of joint space at the medial compartment with osteosclerosis of the medial tibial plateau. Osteophytes are present. There is a small suprapatellar effusion suspected. There is generalized vascular calcification. An osteo chondroma is noted along the proximal and medial aspect of the proximal tibia not significantly changed. No fracture or dislocation. No lytic or blastic change. There is mild chondrocalcinosis of the medial meniscus. IMPRESSION: Severe osteoarthritis of the left knee which appears slightly progressed at the medial compartment Dictated by: Rufino Guthrie MD 06/20/2021 15:27 Rufino Guthrie MD in [place] 06/20/2021 15:27
--- NOTE | 2021-06-20 13:34 | XR_ITS ---
PROCEDURE: XR KNEE RT 4V CLINICAL INDICATION: right knee pain COMPARISON: CR XR KNEE RT 4V from 11/11/2019 CR XR KNEE RT 4V from 10/12/2020 CR XR KNEE LT 4V from 10/12/2020 FINDINGS: There are severe osteoarthritic changes of the medial compartment with moderate osteoarthritic change of the patellofemoral joint and lateral compartment this does not appear significantly changed. Osteophytes are also noted with prominent hypertrophy of the medial tibial spine. Generalized vascular calcification. Other findings:There may be a small suprapatellar effusion. IMPRESSION: No change osteoarthritis of the right knee Dictated by: Rufino Guthrie MD 06/20/2021 15:52 Rufino Guthrie MD in [place] 06/20/2021 15:52
== END ==
PROVIDERS: PCP Emergency Medicine; Visit Provider Orthopaedic Surgery
DX: M25.561 Pain in right knee (principal); M25.562 Pain in left knee
CPT/HCPCS: 73564

== ENCOUNTER → 2021-08-30 19:02 | Outpatient (CLI) | payer MEDICARE, MEDICAID, SELFPAY ==
[2021-08-30 19:35] LABS: Alanine Aminotransferase 54 U/L (12-78); Albumin Level 4.8 g/dl (3.5-5.0); Albumin/Globulin Ratio 1.8 (1.1-1.8); Alkaline Phosphatase 102 U/L (38-126); Anion Gap 13.3 mEq/L (5-15); Aspartate Amino Transferase 38 U/L (17-59); Bilirubin,Total 0.6 mg/dl (0.2-1.3); Blood Urea Nitrogen 13 mg/dl (9-20); Calcium 10.3 mg/dl (8.4-10.2); Carbon Dioxide 27 mmol/L (22.0-30.0); Chloride 104 mmol/L (98-107); Chol/HDL Ratio 4.2 (1-3.5); Cholesterol 135 mg/dl (140-200); Estimated Glomerular Filt Rate 113 ml/min (>60); GFR (African American) 137 ML/MIN (>60); Globulin 2.7 g/dL (1.3-3.2); Glucose 171 mg/dl (74-100); HDL Cholesterol 32 mg/dl (40-60); Potassium 4.3 mmoL/L (3.5-5.1); Sodium 140 mmol/L (136-145); Total Protein,Serum 7.5 g/dl (6.3-8.2); Triglycerides 104 mg/dl (30-150); VLDL Cholesterol 21 mg/dL (0-40)
[2021-08-30 19:38] LABS: Basophils # 0.1 K/mm3 (0-0.2); Basophils % 0.6 % (0.1-2.0); Eosinophils # 0.2 K/mm3 (0.0-0.4); Eosinophils % 2.6 % (0.1-12.0); Hematocrit 45.4 % (42.0-52.0); Hemoglobin 15.8 g/dL (14.1-18.0); Lymphocytes # 2.2 K/mm3 (0.7-4.5); Lymphocytes % 23.6 % (10-50); Mean Corpuscular HGB Conc 34.7 g/dL (31.8-35.4); Mean Corpuscular Hemoglobin 29.2 pg (27.0-31.2); Mean Platelet Volume 8.7 fl (7.4-10.4); Monocytes # 0.5 K/mm3 (0.1-1.0); Neutrophils # 6.3 K/mm3 (1.8-7.8); Neutrophils % 68.2 % (37.0-80.0); Platelet Count 293 K/mm3 (142-424); Red Cell Distribution Width 14.1 % (11.5-17.5); White Blood Count 9.2 K/mm3 (4.8-10.8)
[2021-08-30 19:46] LABS: Hemoglobin A1C 8.1 % (4.0-6.0)
[2021-08-30 19:47] LABS: Direct LDL Cholesterol 88.95 mg/dL (100-129)
[2021-08-30 19:52] LABS: 25-OH Vitamin D, Total 37.7 ng/mL (30-100)
[2021-08-30 20:07] LABS: Thyroid Stimulating Hormone 1.11 uIU/mL (0.465-4.68)
[2021-08-30 22:23] LABS: Amphetamine/Metha Screen,Urine Negative ng/ml (<1000); Barbiturates Screen,Urine Negative ng/ml (<200)
[2021-08-30 22:25] LABS: Benzodiazepines Screen,Urine Negative ng/ml (<200)
[2021-08-30 22:26] LABS: Cannabinoid Screen,Urine Negative ng/ml (<50); Cocaine Screen,Urine Negative ng/ml (<300)
[2021-08-30 22:27] LABS: Methadone Screen,Urine Negative ng/ml (<300)
[2021-08-30 22:28] LABS: Opiate Screen,Urine Negative ng/ml (<300); Phencyclidine Screen,Urine Negative ng/ml (<25)
== END ==
PROVIDERS: Visit Provider Emergency Medicine
DX: M54.16 Radiculopathy, lumbar region (principal); E11.40 Type 2 diabetes mellitus with diabetic neuropathy, unspecified; E55.9 Vitamin D deficiency, unspecified; Z79.84 Long term (current) use of oral hypoglycemic drugs
CPT/HCPCS: 80053; 80061; 80305; 82306; 83036; 84439; 84443; 85025

== ENCOUNTER → 2021-10-17 06:30 | Outpatient (CLI) | payer MEDICARE, MEDICAID, SELFPAY ==
[2021-10-17 08:20] LABS: Blood Urea Nitrogen 15 mg/dl (9-20); Estimated Glomerular Filt Rate 97 ml/min (>60); GFR (African American) 117 ML/MIN (>60)
== END ==
PROVIDERS: PCP Emergency Medicine; Visit Provider Student in an Organized Health Care Education/Training Program
DX: L98.9 Disorder of the skin and subcutaneous tissue, unspecified (principal)
CPT/HCPCS: 36415; 82565; 84520

== ENCOUNTER → 2021-10-23 12:38 | Outpatient (CLI) | payer MEDICARE, MEDICAID, SELFPAY ==
--- NOTE | 2021-10-23 12:41 | CT_ITS ---
FINAL REPORT TECHNIQUE: Axial imaging of the facial bones was obtained after the intravenous administration of contrast. Reformatted images were also obtained and reviewed.This study was performed with techniques to keep radiation doses as low as reasonably achievable, (ALARA). Individualized dose reduction technique using automated exposure control or adjustment of mA and/or kV according to the patient's size were employed. 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 Orbits and globes are intact. There is mild maxillary mucosal thickening. A 13 mm skin and subcutaneous defect is seen in the left face with an adjacent soft tissue focus measuring 5 mm in depth. Findings may represent localized inflammation or neoplastic involvement, best demonstrated on series 4, images 26 and 27. IMPRESSION: 5 mm area of soft tissue which could represent localized inflammation or neoplastic involvement. Reviewed, Interpreted and Dictated by Sidney Osuna III, MD Transcribed by Atiya Fregoso Authenticated by Sidney Osuna III, MD on 10/23/2021 02:37:25 PM [facility]
== END ==
PROVIDERS: PCP Emergency Medicine; Visit Provider Student in an Organized Health Care Education/Training Program
DX: C44.319 Basal cell carcinoma of skin of other parts of face (principal)
CPT/HCPCS: 70487; Q9967

== ENCOUNTER → 2021-10-30 16:00 | Outpatient (CLI) | payer MEDICARE, MEDICAID, SELFPAY ==
[2021-10-30 19:52] LABS: Barbiturates Screen,Urine Negative ng/ml (<200)
[2021-10-30 19:53] LABS: Benzodiazepines Screen,Urine Negative ng/ml (<200)
[2021-10-30 19:54] LABS: Amphetamine/Metha Screen,Urine Negative ng/ml (<1000); Methadone Screen,Urine Negative ng/ml (<300)
[2021-10-30 19:55] LABS: Cannabinoid Screen,Urine Negative ng/ml (<50)
[2021-10-30 19:56] LABS: Cocaine Screen,Urine Negative ng/ml (<300); Opiate Screen,Urine Positive ng/ml (<300)
[2021-10-30 19:57] LABS: Phencyclidine Screen,Urine Negative ng/ml (<25)
== END ==
PROVIDERS: Visit Provider Emergency Medicine
DX: M54.16 Radiculopathy, lumbar region (principal)
CPT/HCPCS: 80305

== ENCOUNTER → 2021-11-04 08:20 | Outpatient (CLI) | payer MEDICARE, MEDICAID, SELFPAY | PROVIDERS: Visit Provider Ophthalmology | DX: Z01.812 Encounter for preprocedural laboratory examination (principal); Z11.52 Encounter for screening for COVID-19 | CPT/HCPCS: C9803; U0003; U0005 ==

== ENCOUNTER 2021-11-07 06:07 | Day surgery (SDC) | payer MEDICARE, MEDICAID, SELFPAY ==
[2021-11-02 12:39] VITALS: BMI 36.2
[2021-11-07] VITALS (10 sets, daily range): BP systolic 104–174; BP diastolic 61–105; PULSE 70–79; RESP 12–18; TEMP 36.1–36.3; O2SAT 90–98
--- NOTE | 2021-11-07 08:04 | HMH.ANESCL ---
[facility] Anesthesia Checklist - Structural Data Admitted From: Home Planned Operative Procedure/s: excision neoplasm l face w flap closure Consent for Planned Operative Procedure(s) Verified: Yes - Additional verifications Anesthesia Reactions: No Hx Blood Transfusions: No Blood Transfusion Reaction: No - Airway Assessment C-Spine Mobility Assessed: Yes (limited flex/ext) TMJ Mobility Assessed: Yes Dentition: Edentulous - Neurological Assessment Level of Consciousness: Awake, Alert, Appropriate - Anesthesia Plan Anesthesia Risk discussed: Yes Anesthesia Plan: Verified ASA Class: III Anesthesia Type: General [facility] History I have reviewed the patient's past medical history: Yes Medical History: Reports:: Asthma, Chronic Obstructive Pulmonary Disease (COPD), Congenital Heart Disease, Coronary Artery Disease, Diabetes Mellitus Type 2, Gastroesophageal Reflux Disease(GERD), Hyperlipidemia, Hypertension, Lung Disease, Myocardial Infarction Denies:: Cancer, Diabetes Mellitus Type 1, Internal Pacemaker, MRSA, Seizures *Have you ever received a pneumonia vaccine?: Yes *Have you received a flu vaccine this season?: Yes Other Medical History: Reports: Arthritis, Cataracts, Acquired Immunodeficiency Syndrome (AIDS), Other. Denies: Blood Transfusion Reaction Anesthesia experience/problems:: none Other Surgeries: Yes: Angioplasty, Cardiac Catheterization, Cardiac Surgery, Colonoscopy, Coronary Stent, Other. No: Pacemaker Amputation: No Fractures: No - *Social History Last grade of school completed: 7th or 8th Smoking Status: Never smoker Tobacco Type: smokeless tobacco # Packs/Day (cigarettes): 1 Alcohol Intake: never Alcohol Intake Frequency:: a few times a week Substance Use Type: denies use *Occupational Status:: employed Housing: house Household Members: spouse *Travel in the last 8 weeks: None Family Hx:: Cancer, Heart Attack
--- NOTE | 2021-11-07 10:07 | HMH.OPNOTE ---
Date of procedure: 11/07/21 Pre-op Diagnosis:: basal cell carcinoma Post-op Diagnosis:: same Procedure performed:: wide local excision left facial basal cell carcinoma local rotational flap closure of 3 cm x 3 cm defect Surgeon:: Piotr Gould MD PEDICAB DRIVER:: Rolan Figueroa, [place] Anesthesia: GETMarian Estimated blood loss (mL): 10 Operative findings:: left facial basal cell carcinoma clear margins 3x3cm defect closed with local flap Operative note:: The patient was brought to the OR laid in the supine position and general anesthesia was induced patient was prepped and draped in the usual fashion. The Nims nerve monitoring system was set up and confirmed to be working appropriately to monitor the patient's facial nerve. Lidocaine with epinephrine 1 100,000 was injected around the left facial lesion. I first marked out approximate half centimeter margin around the edges of the obvious wound. Ended up being an approximate claus shape. I then dissected through the skin and subcutaneous tissues into the subcutaneous fat. I then excised the lesion which did not appear to be significantly extending deep into the subcutaneous fat. It was sent for permanent pathology. I then took margins around the periphery of the wound and sent for frozen pathology. These all returned negative. I also took a margin on the deep aspect of the wound which also returned negative. It was irrigated and cleaned out. Hemostasis was achieved with bipolar cautery. I then began to close. Patient's defect was approximately 3 cm x 3 cm. I felt that it was too large of a wound to directly close. I undermined significantly around the wound and the anterior, inferior, and posterior fashion. I took care not to undermine to close to the patient's eye or lateral canthus as to not put this under significant tension. Marked out a rhomboid flap and dissected this in the subcutaneous fat plan, superficial to the parotid capsule. I then rotated the flap into the wound and reapproximated the edges with 2-0 Vicryl. The skin incision was then closed with a combination of 5-0 fast and 4-0 chromic suture. Patient's wound was then thoroughly cleaned. Ointment was applied. He is to come back over to anesthesia to be awoken and extubated. Condition: stable Disposition: PACU Complications:: none
--- NOTE | 2021-11-07 10:11 | P.PN_ITS ---
[facility] Anesthesia Record Part I Intake, IV Amount: 1,800 Estimated blood loss (mL): 0 Urine output (mL): 0 Blood Pressure: 130/80 SaO2: 92 Pulse Rate: 75 Respiratory Rate: 12 Temperature: 97.2 F Patient is:: Awake, Stable Stable to PACU at:: 10:05
[2021-11-07 10:20] LABS: POC Glucose,Bedside 229 (70-110)
--- NOTE | 2021-11-07 10:48 | SUR.PHASEI ---
1013 FSBS obtained with result of 229. SAJAN Grubbs notified. No new orders at this time. 1036 Detailed report provided to Isabelle Rivera RN. Pt left in stable condition.
[2021-11-08 18:43] VITALS: BP 110/73; PULSE 73; TEMP 36.2
--- NOTE | 2021-11-08 18:43 | P.PN_ITS ---
[facility] Anesthesia Record Part II Discharge Time: 10:35 Destination: Home PACU nurse assessment reviewed?: Yes Patient Condition:: Good Anesthesia Complications:: None none Swallowing reflex intact?: Yes Cyanosis?: No Blood Pressure: 110/73 Pulse Rate: 73 Temperature: 97.2 F Mental Status: Alert & Oriented Pain level:: 0 Nausea and/or vomitting:: None Intake, IV Amount: 0
[2022-06-14 10:57] LABS: POC Glucose,Bedside 218 (70-110)
== END 2021-11-07 11:17 | disposition home or self-care (01) ==
LOC: OR 06:08
PROVIDERS: PCP Emergency Medicine; Visit Provider Student in an Organized Health Care Education/Training Program
DX: C44.319 Basal cell carcinoma of skin of other parts of face (principal); E11.9 Type 2 diabetes mellitus without complications; Z79.84 Long term (current) use of oral hypoglycemic drugs; J44.9 Chronic obstructive pulmonary disease, unspecified; I25.10 Atherosclerotic heart disease of native coronary artery without angina pectoris
CPT/HCPCS: 14040; 82962; 88305; 88331; 96374; J0330; J2405

== ENCOUNTER → 2021-12-27 12:17 | Outpatient (CLI) | payer MEDICARE, MEDICAID, SELFPAY ==
[2021-12-27 19:08] LABS: Hemoglobin A1C 8.6 % (4.0-6.0)
[2021-12-27 19:10] LABS: Amphetamine/Metha Screen,Urine Negative ng/ml (<1000)
[2021-12-27 19:12] LABS: Barbiturates Screen,Urine Negative ng/ml (<200)
[2021-12-27 19:13] LABS: Benzodiazepines Screen,Urine Negative ng/ml (<200); Cannabinoid Screen,Urine Negative ng/ml (<50)
[2021-12-27 19:14] LABS: Cocaine Screen,Urine Negative ng/ml (<300)
[2021-12-27 19:15] LABS: Methadone Screen,Urine Negative ng/ml (<300); Opiate Screen,Urine Positive ng/ml (<300)
[2021-12-27 19:17] LABS: Phencyclidine Screen,Urine Negative ng/ml (<25)
[2021-12-27 19:22] LABS: Creatinine,Urine Random 30 mg/dL (Not Estab.)
== END ==
PROVIDERS: PCP Emergency Medicine; Visit Provider Emergency Medicine
DX: E11.8 Type 2 diabetes mellitus with unspecified complications (principal); M54.16 Radiculopathy, lumbar region; Z79.84 Long term (current) use of oral hypoglycemic drugs
CPT/HCPCS: 80305; 82043; 82570; 83036

== ENCOUNTER → 2022-02-26 07:18 | Outpatient (CLI) | payer MEDICARE, MEDICAID, SELFPAY ==
--- NOTE | 2022-02-26 07:19 | CA_ITS ---
FINAL REPORT TECHNIQUE: Color Doppler, duplex Doppler and carson scale sonography of the bilateral neck arterial vasculature was performed. Velocities were measured in the carotid arteries. Stenosis evaluation based on the validated velocity criteria. CLINICAL HISTORY: RACHEL,HTN,HLD FINDINGS: The peak systolic velocity of the right common carotid artery is 73 cm/s. The peak systolic velocity of the right internal carotid artery is 123 cm/s and end diastolic velocity 43 cm/s. The ICA/CCA ratio is 1.68. A mild to moderate amount of plaque is present. The right external carotid artery is patent. The right vertebral artery is patent with antegrade flow. The peak systolic velocity of the left common carotid artery is 95 cm/s. The peak systolic velocity of the left internal carotid artery is 89 cm/s and end diastolic velocity 36 cm/s. The ICA/CCA ratio is 0.94. A mild to moderate amount of plaque is present. The left external carotid artery is patent.The left vertebral artery is patent with antegrade flow. IMPRESSION: Less than 50% bilateral carotid stenosis. Bilateral patent vertebral arteries with antegrade flow. Reviewed, Interpreted and Dictated by Sidney Osuna III, MD Transcribed by Siomara Borges Authenticated and [facility]
== END ==
PROVIDERS: PCP Emergency Medicine; Visit Provider Physician Assistant
DX: I65.23 Occlusion and stenosis of bilateral carotid arteries (principal)
CPT/HCPCS: 93880

== ENCOUNTER → 2022-05-04 11:00 | Outpatient (CLI) | payer MEDICARE, MEDICAID, SELFPAY ==
[2022-05-04 15:42] LABS: Alanine Aminotransferase 46 U/L (12-78); Albumin Level 4.4 g/dl (3.5-5.0); Albumin/Globulin Ratio 1.8 (1.1-1.8); Alkaline Phosphatase 106 U/L (38-126); Anion Gap 14.4 mEq/L (5-15); Aspartate Amino Transferase 54 U/L (17-59); Bilirubin,Total 0.3 mg/dl (0.2-1.3); Blood Urea Nitrogen 12 mg/dl (9-20); Calcium 9.6 mg/dl (8.4-10.2); Carbon Dioxide 24 mmol/L (22.0-30.0); Chloride 106 mmol/L (98-107); Estimated Glomerular Filt Rate 135 ml/min (>60); GFR (African American) 163 ML/MIN (>60); Globulin 2.5 g/dL (1.3-3.2); Glucose 112 mg/dl (74-100); Potassium 4.4 mmoL/L (3.5-5.1); Sodium 140 mmol/L (136-145); Total Protein,Serum 6.9 g/dl (6.3-8.2)
[2022-05-04 15:52] LABS: Hemoglobin A1C 6.3 % (4.0-6.0)
== END ==
PROVIDERS: PCP Emergency Medicine; Visit Provider Emergency Medicine
DX: E11.9 Type 2 diabetes mellitus without complications (principal); Z79.84 Long term (current) use of oral hypoglycemic drugs
CPT/HCPCS: 80053; 83036

== ENCOUNTER → 2022-07-20 07:48 | Outpatient (CLI) | payer MEDICARE, MEDICAID, SELFPAY ==
--- NOTE | 2022-07-20 07:54 | XR_ITS ---
FINAL REPORT CLINICAL HISTORY: marcela knee pain FINDINGS: Right knee Four views were obtained. There is no acute fracture or dislocation. There are moderate to severe degenerative changes with medial compartment narrowing. Small joint effusion is identified. Vascular calcification is noted. IMPRESSION: Significant degenerative changes. Reviewed, Interpreted and Dictated by Sidney Osuna III, MD Transcribed by Hermelinda Ordoñez Authenticated and [facility]
--- NOTE | 2022-07-20 07:54 | XR_ITS ---
FINAL REPORT CLINICAL HISTORY: marcela knee pain FINDINGS: Left knee Four views were obtained. There is no acute fracture or dislocation. There are moderate and severe degenerative changes with severe medial compartment narrowing. There is a probable osteo chondroma extending from posterior medial tibial metaphysis measuring 23 mm. Vascular calcification is identified. There is a small joint effusion. 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 If indicated, MRI may be helpful. Significant degenerative changes. Reviewed, Interpreted and Dictated by Sidney Osuna III, MD Transcribed by Hermelinda Ordoñez Authenticated and [facility]
== END ==
PROVIDERS: PCP Emergency Medicine; Visit Provider Orthopaedic Surgery
DX: M25.561 Pain in right knee (principal); M25.562 Pain in left knee
CPT/HCPCS: 73564

== ENCOUNTER → 2022-12-24 08:30 | Outpatient (CLI) | payer MEDICARE, SELFPAY ==
[2022-12-24 15:26] LABS: Basophils % 0.3 % (0.1-2.0); Eosinophils # 0.2 K/mm3 (0.0-0.4); Eosinophils % 2.5 % (0.1-12.0); Hematocrit 46.9 % (42.0-52.0); Hemoglobin 15.2 g/dL (14.1-18.0); Lymphocytes # 1.7 K/mm3 (0.7-4.5); Lymphocytes % 24.2 % (10-50); Mean Corpuscular HGB Conc 32.5 g/dL (31.8-35.4); Mean Corpuscular Hemoglobin 29.8 pg (27.0-31.2); Mean Corpuscular Volume 91.5 fl (80-94); Mean Platelet Volume 9.2 fl (7.4-10.4); Monocytes # 0.4 K/mm3 (0.1-1.0); Monocytes % 5.5 % (1.7-9.3); Neutrophils # 4.7 K/mm3 (1.8-7.8); Neutrophils % 67.4 % (37.0-80.0); Platelet Count 253 K/mm3 (142-424); Red Blood Count 5.12 M/mm3 (4.60-6.20); Red Cell Distribution Width 13.6 % (11.5-17.5)
[2022-12-24 15:58] LABS: Alanine Aminotransferase 45 U/L (12-78); Albumin Level 4.5 g/dl (3.5-5.0); Albumin/Globulin Ratio 2.1 (1.1-1.8); Alkaline Phosphatase 101 U/L (38-126); Anion Gap 13.6 mEq/L (5-15); Aspartate Amino Transferase 39 U/L (17-59); Bilirubin,Total 0.6 mg/dl (0.2-1.3); Blood Urea Nitrogen 13 mg/dl (9-20); Calcium 9.5 mg/dl (8.4-10.2); Carbon Dioxide 24 mmol/L (22.0-30.0); Chloride 104 mmol/L (98-107); Cholesterol 115 mg/dl (140-200); Estimated Glomerular Filt Rate 96 ml/min (>60); GFR (African American) 117 ML/MIN (>60); Globulin 2.1 g/dL (1.3-3.2); Glucose 244 mg/dl (74-100); HDL Cholesterol 29 mg/dl (40-60); Potassium 4.6 mmoL/L (3.5-5.1); Sodium 137 mmol/L (136-145); Total Protein,Serum 6.6 g/dl (6.3-8.2); Triglycerides 123 mg/dl (30-150); VLDL Cholesterol 25 mg/dL (0-40)
[2022-12-24 16:10] LABS: Direct LDL Cholesterol 73.83 mg/dL (100-129)
[2022-12-24 16:15] LABS: 25-OH Vitamin D, Total 35.6 ng/mL (30-100)
[2022-12-24 16:16] LABS: Free T4 (Free Thyroxine) 0.84 ng/dl (0.78-2.19)
[2022-12-24 16:30] LABS: Prostate Specific Ag Screen 0.6 ng/ml (0.0-4.0); Thyroid Stimulating Hormone 1.46 uIU/mL (0.465-4.68)
== END ==
PROVIDERS: PCP Emergency Medicine; Visit Provider Emergency Medicine
DX: I10 Essential (primary) hypertension; E11.42 Type 2 diabetes mellitus with diabetic polyneuropathy; E55.9 Vitamin D deficiency, unspecified; Z12.5 Encounter for screening for malignant neoplasm of prostate; Z79.84 Long term (current) use of oral hypoglycemic drugs
CPT/HCPCS: 80053; 80061; 82306; 83036; 84439; 84443; 85025; G0103

== ENCOUNTER → 2023-01-01 08:13 | Outpatient (CLI) | payer MEDICARE, SELFPAY ==
[2023-01-01 08:41] LABS: Basophils % 0.5 % (0.1-2.0); Eosinophils # 0.2 K/mm3 (0.0-0.4); Eosinophils % 2.4 % (0.1-12.0); Hematocrit 45.7 % (42.0-52.0); Hemoglobin 15.3 g/dL (14.1-18.0); Lymphocytes % 25.4 % (10-50); Mean Corpuscular HGB Conc 33.6 g/dL (31.8-35.4); Mean Corpuscular Volume 89.3 fl (80-94); Mean Platelet Volume 8.2 fl (7.4-10.4); Monocytes # 0.4 K/mm3 (0.1-1.0); Monocytes % 4.4 % (1.7-9.3); Neutrophils # 5.3 K/mm3 (1.8-7.8); Neutrophils % 67.2 % (37.0-80.0); Platelet Count 242 K/mm3 (142-424); Red Blood Count 5.12 M/mm3 (4.60-6.20); Red Cell Distribution Width 13.5 % (11.5-17.5); White Blood Count 7.9 K/mm3 (4.8-10.8)
[2023-01-01 08:57] LABS: Chloride 104 mmol/L (98-107); Potassium 4.5 mmoL/L (3.5-5.1)
[2023-01-01 08:59] LABS: Blood Urea Nitrogen 11 mg/dl (9-20); Estimated Glomerular Filt Rate 96 ml/min (>60); GFR (African American) 117 ML/MIN (>60)
[2023-01-01 09:00] LABS: Alanine Aminotransferase 46 U/L (12-78); Albumin Level 4.4 g/dl (3.5-5.0); Alkaline Phosphatase 82 U/L (38-126); Aspartate Amino Transferase 38 U/L (17-59); Bilirubin,Total 0.6 mg/dl (0.2-1.3); Carbon Dioxide 28 mmol/L (22.0-30.0); Cholesterol 101 mg/dl (140-200); Globulin 2.2 g/dL (1.3-3.2); Glucose 195 mg/dl (74-100); Total Protein,Serum 6.6 g/dl (6.3-8.2); Triglycerides 97 mg/dl (30-150); VLDL Cholesterol 19 mg/dL (0-40)
[2023-01-01 09:01] LABS: Calcium 9.6 mg/dl (8.4-10.2); Chol/HDL Ratio 3.5 (1-3.5); HDL Cholesterol 29 mg/dl (40-60)
[2023-01-01 09:14] LABS: Direct LDL Cholesterol 59.05 mg/dL (100-129)
[2023-01-01 09:17] LABS: Free T4 (Free Thyroxine) 0.81 ng/dl (0.78-2.19)
[2023-01-01 09:24] LABS: Hemoglobin A1C 7.2 % (4.0-6.0)
[2023-01-01 09:29] LABS: 25-OH Vitamin D, Total 39.2 ng/mL (30-100)
[2023-01-01 09:31] LABS: Thyroid Stimulating Hormone 2.33 uIU/mL (0.465-4.68)
[2023-01-01 14:39] LABS: Anion Gap 13.5 mEq/L (5-15); Sodium 141 mmol/L (136-145)
== END ==
PROVIDERS: PCP Emergency Medicine; Visit Provider Emergency Medicine
DX: I25.10 Atherosclerotic heart disease of native coronary artery without angina pectoris (principal); R60.0 Localized edema; E13.9 Other specified diabetes mellitus without complications; E55.9 Vitamin D deficiency, unspecified; Z79.84 Long term (current) use of oral hypoglycemic drugs
CPT/HCPCS: 36415; 80053; 80061; 82306; 83036; 84439; 84443; 85025

== ENCOUNTER → 2023-05-22 23:12 | Outpatient (CLI) | payer MEDICARE, SELFPAY | PROVIDERS: PCP Emergency Medicine; Visit Provider Nurse Practitioner Family | DX: L60.0 Ingrowing nail (principal); M79.674 Pain in right toe(s); B96.1 Klebsiella pneumoniae [K. pneumoniae] as the cause of diseases classified elsewhere; B95.7 Other staphylococcus as the cause of diseases classified elsewhere | CPT/HCPCS: 87070; 87077; 87186; 87205 ==

== ENCOUNTER 2023-09-30 13:04 | Outpatient (CLI) | payer MEDICARE, SELFPAY ==
[2023-09-30 14:15] LABS: Barbiturates Screen,Urine Negative ng/ml (<200)
[2023-09-30 14:16] LABS: Amphetamine/Metha Screen,Urine Negative ng/ml (<1000); Benzodiazepines Screen,Urine Negative ng/ml (<200)
[2023-09-30 14:17] LABS: Cocaine Screen,Urine Negative ng/ml (<300); Methadone Screen,Urine Negative ng/ml (<300)
[2023-09-30 14:18] LABS: Cannabinoid Screen,Urine Negative ng/ml (<50)
[2023-09-30 14:19] LABS: Opiate Screen,Urine Positive ng/ml (<300)
[2023-09-30 14:48] LABS: Phencyclidine Screen,Urine Negative ng/ml (<25)
== END 2023-09-30 23:59 ==
LOC: LAB.DROPOF 13:05
PROVIDERS: Visit Provider Family Medicine
DX: Z79.899 Other long term (current) drug therapy (principal)
CPT/HCPCS: 80307

== ENCOUNTER 2023-10-12 08:12 | Outpatient (CLI) | payer MEDICARE, SELFPAY ==
--- NOTE | 2023-10-12 08:32 | ECG_ITS ---
APPROVED REPORT Exam: Resting ECG HR:83 bpm ECG Measurements Heart Rate 83 AXES SC 177 P 17 QRSd 148 QRS -17 QT 388 T 29 QTc 428 Conclusion SINUS RHYTHM RIGHT BUNDLE BRANCH BLOCK [120+ ms QRS DURATION, UPRIGHT V1, 40+ ms S IN I/aVL/V4/V5/V6] ABNORMAL ECG UNCONFIRMED REPORT Electronically signed by : Fercho Barth MD 10/15/2023 16:51:12
[2023-10-12 09:12] LABS: Basophils # 0.1 K/mm3 (0-0.2); Basophils % 0.6 % (0.1-2.0); Eosinophils # 0.3 K/mm3 (0.0-0.4); Hematocrit 43.6 % (42.0-52.0); Hemoglobin 15.2 g/dL (14.1-18.0); Lymphocytes # 2.6 K/mm3 (0.7-4.5); Lymphocytes % 31.1 % (10-50); Mean Corpuscular HGB Conc 34.9 g/dL (31.8-35.4); Mean Corpuscular Hemoglobin 30.4 pg (27.0-31.2); Mean Corpuscular Volume 87.2 fl (80-94); Mean Platelet Volume 8.1 fl (7.4-10.4); Monocytes # 0.4 K/mm3 (0.1-1.0); Monocytes % 4.5 % (1.7-9.3); Neutrophils # 5.1 K/mm3 (1.8-7.8); Neutrophils % 60.9 % (37.0-80.0); Platelet Count 218 K/mm3 (142-424); Red Cell Distribution Width 13.4 % (11.5-17.5); White Blood Count 8.4 K/mm3 (4.8-10.8)
[2023-10-12 09:43] LABS: Alanine Aminotransferase 48 U/L (12-78); Albumin Level 4.3 g/dl (3.5-5.0); Albumin/Globulin Ratio 1.9 (1.1-1.8); Alkaline Phosphatase 109 U/L (38-126); Anion Gap 14.8 mEq/L (5-15); Aspartate Amino Transferase 33 U/L (17-59); Bilirubin,Total 0.7 mg/dl (0.2-1.3); Blood Urea Nitrogen 13 mg/dl (9-20); Calcium 9.8 mg/dl (8.4-10.2); Carbon Dioxide 25 mmol/L (22.0-30.0); Chloride 103 mmol/L (98-107); Estimated Glomerular Filt Rate 96 ml/min (>60); GFR (African American) 117 ML/MIN (>60); Globulin 2.3 g/dL (1.3-3.2); Glucose 276 mg/dl (74-100); Potassium 4.8 mmoL/L (3.5-5.1); Sodium 138 mmol/L (136-145); Total Protein,Serum 6.6 g/dl (6.3-8.2)
== END 2023-10-12 23:59 ==
LOC: LAB 08:14
PROVIDERS: PCP Family Medicine; Visit Provider Otolaryngology
DX: Z01.818 Encounter for other preprocedural examination (principal)
CPT/HCPCS: 36415; 80053; 85025; 93005

== ENCOUNTER 2023-10-22 08:09 | Day surgery (SDC) | payer MEDICARE, MEDICAID, SELFPAY ==
[2023-10-21 10:46] VITALS: BMI 32.5
[2023-10-22] MEDS: LACTATED RINGERS 1000ML 1,000 ML 100 ML IV (08:43)
[2023-10-22 08:48] VITALS: BP 130/82; PULSE 80; RESP 18; TEMP 36.1; O2SAT 97
[2023-10-22 09:00] LABS: POC Glucose,Bedside 205 (70-110)
[2023-10-22] MEDS: LIDOCAINE 1% W/EPI 1:100,000 20ML VIAL 20 ML (10:09)
[2023-10-22 10:30] VITALS: BP 116/69; PULSE 80; RESP 17; TEMP 36.2; O2SAT 96
--- NOTE | 2023-10-22 10:31 | P.OP_ITS ---
Date of procedure: 10/22/23 Pre-op Diagnosis:: Basal cell carcinoma left neck Post-op Diagnosis:: Basal cell carcinoma left neck Procedure performed:: Wide local excision with multilayer closure Surgeon:: Antonio Estrella MD [facility] PLANS INTELLIGENCE OFFICER:: Rolan Figueroa Anesthesia: MAC Estimated blood loss (mL): 0 Operative findings:: 7 mm nodular lesion of the left neck Operative note:: The patient was brought to the operating room and the previously biopsied basal cell carcinoma in the posterior aspect of the skin of his left neck was marked and then 1% lidocaine with epinephrine used to locally infiltrate the area. IV sedation was appropriately administered. The neck was then prepped and draped as an the skin lesion excised with 1 cm margins and the incision was just all skin fold. Hemostasis was established with bipolar cautery and then the wound closed in 2 layers with 4-0 Vicryl and nylon. A sterile dressing was placed and the procedure concluded. All counts correct and blood loss was 0 and she was sent to recovery in stable condition Condition: stable Disposition: PACU Complications:: No complication
[2023-10-22 10:40] VITALS: BP 122/73; PULSE 82; RESP 16; O2SAT 97
[2023-10-22 10:50] VITALS: BP 117/63; PULSE 71; RESP 17; O2SAT 97
== END 2023-10-22 10:50 | disposition home or self-care (01) ==
PROVIDERS: PCP Family Medicine; Visit Provider Otolaryngology
PROC: (CPT 11621; principal; 2023-10-22 10:00)
DX: C44.41 Basal cell carcinoma of skin of scalp and neck (principal)
CPT/HCPCS: 11621; 12041; 82962; 88305

== ENCOUNTER 2023-11-05 07:12 | Outpatient (CLI) | payer MEDICARE, MEDICAID, SELFPAY ==
--- NOTE | 2023-11-05 07:14 | XR_ITS ---
FINAL REPORT CLINICAL HISTORY: rt knee pain COMPARISON: 07/20/2022 FINDINGS: Right knee Three views were obtained. There is no acute fracture or dislocation. There is advanced medial compartment joint space narrowing and subchondral sclerosis. Osteophytes are seen along the undersurface of patella No soft tissue abnormality is identified. IMPRESSION: Advanced changes of osteoarthritis. Reviewed, Interpreted and Dictated by Reynaldo Mcguire MD Transcribed by Hermelinda Ordoñez Authenticated and [facility]
--- NOTE | 2023-11-05 07:14 | XR_ITS ---
FINAL REPORT CLINICAL HISTORY: lt knee pain COMPARISON: 07/20/2022 FINDINGS: Left knee Three views were obtained. There is no acute fracture or dislocation. There is advanced medial compartment joint space narrowing with subchondral sclerosis. There is an exostosis arising from the posterior aspect of the medial tibial metaphysis measuring 3.2 cm, similar to previous. IMPRESSION: Advanced changes of osteoarthritis. Reviewed, Interpreted and Dictated by Reynaldo Mcguire MD Transcribed by Hermelinda Ordoñez Authenticated and [facility]
== END 2023-11-05 23:59 ==
LOC: LAB 07:14
PROVIDERS: PCP Family Medicine; Visit Provider Orthopaedic Surgery
DX: M25.561 Pain in right knee (principal); M25.562 Pain in left knee
CPT/HCPCS: 73562

== ENCOUNTER 2024-05-21 14:54 | Outpatient (CLI) | payer MEDICARE, SELFPAY ==
[2024-05-21 19:11] LABS: Basophils % 0.5 % (0.1-2.0); Eosinophils # 0.2 K/mm3 (0.0-0.4); Eosinophils % 2.4 % (0.1-12.0); Hematocrit 44.6 % (42.0-52.0); Hemoglobin 14.2 g/dL (14.1-18.0); Lymphocytes # 2.3 K/mm3 (0.7-4.5); Lymphocytes % 26.4 % (10-50); Mean Corpuscular HGB Conc 31.8 g/dL (31.8-35.4); Mean Corpuscular Hemoglobin 30.3 pg (27.0-31.2); Mean Corpuscular Volume 95.4 fl (80-94); Mean Platelet Volume 9.4 fl (7.4-10.4); Monocytes # 0.5 K/mm3 (0.1-1.0); Monocytes % 5.6 % (1.7-9.3); Neutrophils # 5.5 K/mm3 (1.8-7.8); Neutrophils % 65.1 % (37.0-80.0); Platelet Count 275 K/mm3 (142-424); Red Blood Count 4.68 M/mm3 (4.60-6.20); Red Cell Distribution Width 13.9 % (11.5-17.5); White Blood Count 8.5 K/mm3 (4.8-10.8)
[2024-05-21 19:47] LABS: Creatinine,Urine Random 32 mg/dL (Not Estab.); Microalbumin < 6.000 mg/L (0-16.7)
[2024-05-21 19:50] LABS: Chol/HDL Ratio 4.2 (1-3.5); Cholesterol 122 mg/dl (140-200); HDL Cholesterol 29 mg/dl (40-60); Triglycerides 143 mg/dl (30-150); VLDL Cholesterol 29 mg/dL (0-40)
[2024-05-21 20:01] LABS: Direct LDL Cholesterol 76.93 mg/dL (100-129)
[2024-05-21 20:21] LABS: Prostate Specific Ag Screen 0.7 ng/ml (0.0-4.0)
== END 2024-05-21 23:59 | disposition home or self-care (01) ==
LOC: LAB.DROPOF 05-22 14:55
PROVIDERS: PCP Family Medicine; Visit Provider Family Medicine
DX: E11.42 Type 2 diabetes mellitus with diabetic polyneuropathy (principal); E78.5 Hyperlipidemia, unspecified; E11.40 Type 2 diabetes mellitus with diabetic neuropathy, unspecified; Z12.5 Encounter for screening for malignant neoplasm of prostate; Z79.899 Other long term (current) drug therapy
CPT/HCPCS: 80061; 82043; 82570; 85025; G0103

== ENCOUNTER 2024-08-12 09:51 | Outpatient (CLI) | payer MEDICARE, SELFPAY ==
[2024-08-12 21:40] LABS: HIV (1&2) Antibody Rapid NONREACTIVE (NONREACTIVE)
[2024-08-15 03:36] LABS: HCV Ab Non Reactive (Non Reactive)
== END 2024-08-12 23:59 | disposition home or self-care (01) ==
LOC: LAB.DROPOF 08-14 09:31
PROVIDERS: PCP Family Medicine; Visit Provider Family Medicine
DX: Z11.59 Encounter for screening for other viral diseases (principal)
CPT/HCPCS: 86803; 87389

== ENCOUNTER 2024-08-20 07:43 | Outpatient (CLI) | payer MEDICARE, MEDICAID, SELFPAY ==
--- NOTE | 2024-08-20 07:49 | US_ITS ---
FINAL REPORT CLINICAL HISTORY: claudication, smokeless tobacco, HTN, DM, hyperlipidemia, hx DE, previous angioplasty, bilateral rest pain. Left leg numbness, coldness per patient. COMPARISON: None FINDINGS: ANKLE-BRACHIAL PRESSURE INDICES Pressure indices are as follows: RIGHT LOWER EXTREMITY: Ankle-brachial pressure index: 0.73 Comments: Depressed, consistent with peripheral arterial disease. LEFT LOWER EXTREMITY: Ankle-brachial pressure index: 0.57 Comments: Depressed, consistent with peripheral arterial disease. CONCLUSION: Ankle-brachial indices are bilaterally depressed, consistent with peripheral arterial disease. Consider CT angiography or catheter angiography for further evaluation. Reviewed, Interpreted and Dictated by Sidney Osuna III, MD Transcribed by Franci Celis Authenticated and [facility]
== END 2024-08-20 23:59 | disposition home or self-care (01) ==
PROVIDERS: PCP Family Medicine; Visit Provider Family Medicine
DX: I73.9 Peripheral vascular disease, unspecified (principal)
CPT/HCPCS: 93923

== ENCOUNTER 2024-09-01 07:06 | Outpatient (CLI) | payer MEDICARE, MEDICAID, SELFPAY ==
[2024-09-01 07:45] LABS: Basophils # 0.1 K/mm3 (0-0.2); Basophils % 0.5 % (0.1-2.0); Eosinophils # 0.1 K/mm3 (0.0-0.4); Eosinophils % 1.5 % (0.1-12.0); Hematocrit 45.2 % (42.0-52.0); Hemoglobin 15.1 g/dL (14.1-18.0); Lymphocytes # 1.9 K/mm3 (0.7-4.5); Lymphocytes % 19.6 % (10-50); Mean Corpuscular HGB Conc 33.3 g/dL (31.8-35.4); Mean Corpuscular Hemoglobin 29.2 pg (27.0-31.2); Mean Corpuscular Volume 87.6 fl (80-94); Mean Platelet Volume 7.8 fl (7.4-10.4); Monocytes # 0.5 K/mm3 (0.1-1.0); Monocytes % 5.7 % (1.7-9.3); Neutrophils # 6.9 K/mm3 (1.8-7.8); Neutrophils % 72.7 % (37.0-80.0); Platelet Count 232 K/mm3 (142-424); Red Blood Count 5.16 M/mm3 (4.60-6.20); Red Cell Distribution Width 13.6 % (11.5-17.5); White Blood Count 9.5 K/mm3 (4.8-10.8)
--- NOTE | 2024-09-01 07:50 | CA_ITS ---
APPROVED REPORT EXAM: Comprehensive 2D, Doppler, and color-flow Echocardiogram Director [employer]: Flor Wills RVT Ht: 6 ft 0 in Wt: 229lbs BSA: 2.26 BP: 126/81 mmHg Indications: EDEMA,CAD,RBBB,COPD,HTN,HLD,DM 2D Dimensions IVSd 2.07 cm M: 0.6-1.2 LVEF (Visual) 63.20 % PWd 1.22 cm M: 0.6 - 1.2 LA Volume 34.40 mL LVDd 4.05 cm M: 4.2 - 5.9 LA Volume Index 15.22 mL/m2 (M/F) 16-34 LVDs 2.68 cm M: 2.5 - 4.0 EF AP4 57.40 % Left Atrium 3.25 cm M: 3.0 - 4.0 GL Strain -15.2 % RVID Base (AP4) 2.51 cm (M/F) 2.5-4.1 LVOT 3.23 cm (M/F) 1.5-2.5 M-Mode Dimensions LVDd 4.05 cm (3.5-5.7) Ao Diam 3.86 cm (2.0-3.7) LVDs 2.68 cm (3.5-5.7) IVSd 2.07 cm (0.6-1.1) PWd 1.22 cm (0.6-1.1) FS 33.80% LV Diastology E Decel Time 175 (160-240 msec) E/A Ratio 0.6 MED E' 6.0 (>= 7 cm/sec) E'/MED E' Ratio 7.42 (<= 14) LAT E' 6.7 (>= 10 cm/sec) E/LAT E' Ratio 6.64 (<= 14) Aortic Valve LVOT Max 96.0 (70-110 cm/s) AoV Peak Ron. 107.0 (50-130 cm/s) AO Peak GR. 4.60 mmHg Mitral Valve MV E Max Ron. 44.0 (40-130 cm/s) MV A Velocity 71.0 (40-130 cm/s) E/A Ratio 0.63 MV Decel. Time 175 (160-240 ms) Tricuspid Valve TR P. Velocity 280.00 cm/s RAP Estimate 10.00 mmHg RVSP 41.40 mmHg Left Ventricle The left ventricle is normal size. The left ventricular systolic function is normal. The left ventricular ejection fraction is within the normal range. There is increased LV wall thickness. The septum is asynchronous. Transmitral Doppler flow pattern suggests impaired LV relaxation. LVEF is 55%. Right Ventricle Right ventricle is mildly dilated. The right ventricular systolic function is normal. Atria The left atrium size is normal. The right atrium size is normal. There is no Doppler evidence of interatrial shunt. Aortic Valve The aortic valve is mildly thickened. There is no aortic valvular stenosis. Trace aortic regurgitation. Mitral Valve The mitral valve is normal in structure. No evidence of mitral valve stenosis. Trace mitral regurgitation. Tricuspid Valve Tricuspid valve is grossly normal in structure and function. Mild tricuspid regurgitation. RVSP is 30-35 mmHg. Pulmonic Valve Pulmonic valve is grossly normal in structure. Trace pulmonic regurgitation. Great Vessels The aortic root is normal in size. The ascending aorta is normal in size. IVC is normal in size and collapses >50% with inspiration. Pericardium There is no pericardial effusion. Other Information Study Quality: Fair Conclusion Normal biventricular systolic function. Mild RV dilation. Mild TR. RVSP 30-35 mmHg. Electronically signed by : Iveth Carreon MD 09/11/2024 12:05:20
[2024-09-01 08:13] LABS: Albumin Level 4.1 g/dl (3.5-5.0); Chloride 106 mmol/L (98-107); Potassium 4.6 mmoL/L (3.5-5.1); Sodium 136 mmol/L (136-145)
[2024-09-01 08:15] LABS: Bilirubin,Unconjugated 0.3 mg/dL (0.0-1.1); Blood Urea Nitrogen 14 mg/dl (9-20); Estimated Glomerular Filt Rate 96 ml/min (>60); GFR (African American) 116 ML/MIN (>60)
[2024-09-01 08:16] LABS: Alanine Aminotransferase 43 U/L (12-78); Alkaline Phosphatase 110 U/L (38-126); Anion Gap 9.6 mEq/L (5-15); Aspartate Amino Transferase 37 U/L (17-59); Bilirubin,Direct 0.3 mg/dl (0.0-0.4); Bilirubin,Indirect 0.3 mg/dL (0.0-0.9); Bilirubin,Total 0.6 mg/dl (0.2-1.3); Calcium 9.5 mg/dl (8.4-10.2); Carbon Dioxide 25 mmol/L (22.0-30.0); Chol/HDL Ratio 3.9 (1-3.5); Cholesterol 122 mg/dl (140-200); Glucose 300 mg/dl (74-100); HDL Cholesterol 31 mg/dl (40-60); Magnesium 1.6 mg/dl (1.6-2.3); Triglycerides 86 mg/dl (30-150); VLDL Cholesterol 17 mg/dL (0-40)
[2024-09-01 08:27] LABS: Direct LDL Cholesterol 75.15 mg/dL (100-129)
[2024-09-01 08:33] LABS: Free T4 (Free Thyroxine) 0.84 ng/dl (0.78-2.19)
[2024-09-01 08:47] LABS: Thyroid Stimulating Hormone 1.24 uIU/mL (0.465-4.68)
[2024-09-01 15:32] LABS: Hemoglobin A1C 7.8 % (4.0-6.0)
== END 2024-09-01 23:59 | disposition home or self-care (01) ==
PROVIDERS: PCP Family Medicine; Visit Provider Nurse Practitioner
DX: I36.1 Nonrheumatic tricuspid (valve) insufficiency (principal); I65.23 Occlusion and stenosis of bilateral carotid arteries; I25.10 Atherosclerotic heart disease of native coronary artery without angina pectoris; E78.2 Mixed hyperlipidemia; I10 Essential (primary) hypertension; I73.9 Peripheral vascular disease, unspecified; R68.89 Other general symptoms and signs; E11.9 Type 2 diabetes mellitus without complications
CPT/HCPCS: 36415; 80048; 80061; 80076; 83036; 83735; 84439; 84443; 85025; 93306

== ENCOUNTER 2024-09-17 07:55 | Day surgery (SDC) | payer MEDICARE, MEDICAID, SELFPAY ==
[2024-09-17] VITALS (11 sets, daily range): BP systolic 106–144; BP diastolic 71–96; PULSE 65–81; RESP 16–20; O2SAT 90–99; BMI 31.0
--- NOTE | 2024-09-17 07:16 | IR_ITS ---
APPROVED REPORT Patient Location: Outpatient PROCEDURES Right femoral arterial access Catheter placed in the distal abdominal aorta Distal abdominal aortography Repositioning of the catheter abdominal aorta Bilateral iliofemoral runoff INDICATION Abnormal ALEXIA, Marily claudication class III Informed consent was obtained prior to the procedure. COMPLICATIONS None Estimated Blood Loss: Less than 10 mls TECHNIQUE 1% lidocaine used to size right coronary fornices for the Salinger technique a 5 Divehi sheath is placed in the right femoral artery. A pigtail catheter was advanced to the distal abdominal aorta where distal abdominal aortography was performed. The catheter was then repositioned and bilateral iliofemoral runoff was performed. At the end the procedure the apparatus was removed the patient was transferred to the postop holding in stable condition for sheath removal ANGIOGRAPHIC RESULTS This abdominal aorta is patent Bilateral common external and internal iliac arteries are patent Bilateral common femoral arteries are patent Bilateral superficial femoral artery and profunda femoris arteries are widely patent Bilateral popliteal arteries are patent Below the knee on the right there is slow three-vessel runoff to the ankle Below the knee on the left there is slow two-vessel runoff to the ankle. 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 Medical management 2. Risk factor modification 3. Xarelto 2.5 twice daily plus aspirin 81 mg daily Electronically signed by : Lamine Lezama MD 09/17/2024 12:05:48
[2024-09-17 08:25] LABS: Basophils # 0.1 K/mm3 (0-0.2); Eosinophils # 0.2 K/mm3 (0.0-0.4); Eosinophils % 2.4 % (0.1-12.0); Lymphocytes # 1.9 K/mm3 (0.7-4.5)
[2024-09-17 08:38] LABS: Blood Urea Nitrogen 13 mg/dl (9-20); Calcium 9.6 mg/dl (8.4-10.2); Carbon Dioxide 26 mmol/L (22.0-30.0); Chloride 106 mmol/L (98-107); Creatinine Clearance Estimated 104 mL/min (50-200); Estimated Glomerular Filt Rate 112 ml/min (>60); GFR (African American) 136 ML/MIN (>60); Glucose 266 mg/dl (74-100); Sodium 140 mmol/L (136-145)
[2024-09-17 08:51] LABS: Basophils % 0.7 % (0.1-2.0); Hematocrit 43.1 % (42.0-52.0); Lymphocytes % 25.1 % (10-50); Mean Corpuscular HGB Conc 34.8 g/dL (31.8-35.4); Mean Corpuscular Hemoglobin 29.4 pg (27.0-31.2); Mean Corpuscular Volume 84.5 fl (80-94); Mean Platelet Volume 9.9 fl (7.4-10.4); Monocytes # 0.4 K/mm3 (0.1-1.0); Monocytes % 5.6 % (1.7-9.3); Neutrophils # 4.9 K/mm3 (1.8-7.8); Neutrophils % 65.8 % (37.0-80.0); Platelet Count 238 K/mm3 (142-424); Red Cell Distribution Width 12.7 % (11.5-17.5); White Blood Count 7.5 K/mm3 (4.8-10.8)
[2024-09-17 09:38] LABS: Anion Gap 12.4 mEq/L (5-15); Potassium 4.4 mmoL/L (3.5-5.1)
[2024-09-17] MEDS: HEPARIN 1,000 UNITS/500ML NS (CATH LAB) 3000 UNIT IV (11:01)
[2024-09-17] MEDS: LIDOCAINE 1% 10ML MDV 20 ML IJ (11:01)
[2024-09-17] MEDS: diphenhydrAMINE 50MG/ML VIAL 50 MG IV (11:01)
[2024-09-17] MEDS: 0.9 % SODIUM CHLORIDE 500 ML 25 ML IV (11:02)
[2024-09-17] MEDS: MIDAZOLAM HCL 1MG/ML 5ML VIAL 1 MG IV (11:31)
[2024-09-17] MEDS: FENTANYL 100MCG/2ML VIAL 50 MCG IV (11:32)
[2024-09-17] MEDS: IOHEXOL-240 100ML BOTTLE 100 ML IV (12:30)
== END 2024-09-17 15:03 | disposition home or self-care (01) ==
PROVIDERS: PCP Family Medicine; Visit Provider Internal Medicine
DX: I25.10 Atherosclerotic heart disease of native coronary artery without angina pectoris (principal); I65.23 Occlusion and stenosis of bilateral carotid arteries; E78.2 Mixed hyperlipidemia; I10 Essential (primary) hypertension; I73.9 Peripheral vascular disease, unspecified; Z79.899 Other long term (current) drug therapy; Z79.85 Long-term (current) use of injectable non-insulin antidiabetic drugs; Z79.84 Long term (current) use of oral hypoglycemic drugs; I70.213 Atherosclerosis of native arteries of extremities with intermittent claudication, bilateral legs
CPT/HCPCS: 36200; 75625; 75716; 80048; 85025; 99152; 99153; C1725; C1769; C1894; J1200; J1644; J2250; J3010; Q9966

== ENCOUNTER 2024-10-27 08:31 | Day surgery (SDC) | payer MEDICARE, MEDICAID, SELFPAY ==
[2024-10-26 12:38] VITALS: BMI 31.1
[2024-10-27 09:05] VITALS: BP 108/73; PULSE 95; RESP 18; TEMP 36.3; O2SAT 96
[2024-10-27] MEDS: PHENYLEPHRINE 2.5% OPHTH SOLN 2ML OP (09:05)
[2024-10-27] MEDS: TROPICAMIDE 1% OPTH SOLN 2ML OP (09:05)
[2024-10-27] MEDS: APRACLONIDINE 0.5% OPHTH SOLN 5ML OP (09:05)
[2024-10-27] MEDS: TETRACAINE 0.5% OPTH SOL 15ML OP (09:05)
--- NOTE | 2024-10-27 10:51 | P.PCN_ITS ---
[facility] Procedure Note Date: 10/27/24 Time: 10:51 Procedure Note:: Preoperative diagnosis: Posterior Opacification [Right] eye Postoperative diagnosis: same Operation: YAG Laser Capsulotomy The patient has undergone uneventful cataract surgery in the past. The patient has noticed that the vision has decreased from the previous good level postop. The patient reports that he/she is having trouble reading and/or driving or that glare is giving them a problem. On exam, the patient was found to have visually significant posterior capsular opacification. The treatment options, risks and benefits were explained and the patient elected to have YAG laser capsulotomy in an attempt to improve the vision. Of note, the best corrected visual acuity is in the 23/30 or worse range by refraction or glare testing. The eye was dilated and 1 drop of 0.5% Iopidine applied. YAG laser energy was applied to the posterior capsular bag with good formation of an opening and no complications were noted. The patient will be seen back for follow up in 2 weeks. OD 12 pulses/45mj
== END 2024-10-27 10:22 | disposition home or self-care (01) ==
LOC: OUTP 08:32
PROVIDERS: PCP Family Medicine; Visit Provider Ophthalmology
PROC: (CPT 66821; principal; 2024-10-27 12:30)
DX: H26.491 Other secondary cataract, right eye (principal)
CPT/HCPCS: 66821

== ENCOUNTER 2024-10-28 09:30 | Outpatient (CLI) | payer MEDICARE, MEDICAID, SELFPAY ==
[2024-10-28 19:27] LABS: Microalbumin/Creatinine Ratio 24.2
[2024-10-28 19:31] LABS: Creatinine,Urine Random 56 mg/dL (Not Estab.)
== END 2024-10-28 23:59 | disposition home or self-care (01) ==
LOC: LAB.DROPOF 10-29 12:03
PROVIDERS: PCP Family Medicine; Visit Provider Family Medicine
DX: E11.42 Type 2 diabetes mellitus with diabetic polyneuropathy (principal)
CPT/HCPCS: 82043; 82570

== ENCOUNTER 2024-12-21 05:59 | Day surgery (SDC) | payer MEDICARE, MEDICAID, SELFPAY ==
--- NOTE | 2024-12-08 16:19 | PC.NURSE ---
called pt to let him know he did not have to come in for PAT appointment. Cardiac clearance appointment with [facility] cardiology scheduled for this December 10 @ 2:45pm. Pt verbalized understanding.
[2024-12-15 10:40] VITALS: BMI 31.0
[2024-12-21] MEDS: LACTATED RINGERS 1000ML 4,000 ML IV (06:27)
[2024-12-21 06:31] VITALS: BP 118/76; PULSE 80; RESP 18; TEMP 36.4; O2SAT 96
--- NOTE | 2024-12-21 07:18 | P.PNANES_ITS ---
[facility] Disclaimer: The information contained in this section may have been updated after the patient was seen, as this information can be updated by other users. Medical History Encounter for pre-operative cardiovascular clearance Onychomycosis Total avulsion of nail plate Abnormal ankle brachial index (ALEXIA) Viral illness Claudication Positive colorectal cancer screening using Cologuard test Colon cancer screening Restless sleeper Dyspnea Fatigue Daytime somnolence Snoring Avulsion of toenail of right foot Ingrowing Toenail Onychogryphosis Edema Right bundle branch block Coronary arteriosclerosis Surgical History History of surgical removal of lesion History of coronary artery stent placement Family History Other Family history of heart disease Family history of leukemia Social History Smoking Status: Never smoker alcohol intake: never substance use type: denies use current occupational status: employed Travel in the last 8 weeks: Inside the [place] household members: spouse housing: house current occupation: [employer] current occupational exposures/hazards: Yes caffeine: Yes Have you lived/traveled outside [place] in past 30 days?: No Contact w/someone who lives/traveled outside [place] past 30 days?: No Exposure to someone with infectious disease in past 14 days?: No Do you have a fever (greater than 100.4 F or 38 C)?: No Have you tested positive for COVID-19: No Exposed to someone with COVID-19 in past 14 days?: No Do you have a sore throat?: No Do you have a cough?: No Do you have any weakness?: No Do you have any diarrhea?: No Are you experiencing any unusual bleeding?: No Do you have any muscle aches/pain?: No Do you have any abdominal pain?: No Are you experiencing loss of taste or smell?: No [facility] Anesthesia Checklist Patient Identification Patient Identification: Arm Band and Verbal (Name & ) Structural Data Admitted From: Home Planned Operative Procedure/s: colonscopy Consent for Planned Operative Procedure(s) Verified: Yes Verified Documents: Surgical Consent and History and Physical NPO Status Verified Time NPO: 00:00 Additional verifications Anesthesia Reactions: No Hx Blood Transfusions: No Blood Transfusion Reaction: No Airway Assessment Mallampati Score:: Class II Neurological Assessment Level of Consciousness: Awake, Alert and Appropriate Hx Seizures: No Numbness or tingling in extremities: No Anesthesia Plan Anesthesia Risk discussed: No Anesthesia Plan: Patient unable to respond/answer ASA Class: III Anesthesia Type: MAC
[2024-12-21 07:30] VITALS: O2SAT 100
--- NOTE | 2024-12-21 07:31 | EXP.HP ---
History of Present Illness *Admission Date: 12/21/24 *Reason for visit:: Positive Cologuard *History of present illness: Mr. Baeza is a 69-year-old gentleman who is here for screening colonoscopy secondary to a positive Cologuard (in May 2024). The examination is deemed medically necessary for screening colonoscopy. The patient has been seen, interviewed and examined prior to the procedure by both myself and the anesthesia provider. [facility] Disclaimer: The information contained in this section may have been updated after the patient was seen, as this information can be updated by other users. Medical History Encounter for pre-operative cardiovascular clearance Onychomycosis Total avulsion of nail plate Abnormal ankle brachial index (ALEXIA) Viral illness Claudication Positive colorectal cancer screening using Cologuard test Colon cancer screening Restless sleeper Dyspnea Fatigue Daytime somnolence Snoring Avulsion of toenail of right foot Ingrowing Toenail Onychogryphosis Edema Right bundle branch block Coronary arteriosclerosis Surgical History History of surgical removal of lesion History of coronary artery stent placement Family History Other Family history of heart disease Family history of leukemia Social History Smoking Status: Never smoker alcohol intake: never substance use type: denies use current occupational status: employed Travel in the last 8 weeks: Inside the [place] household members: spouse housing: house current occupation: [employer] current occupational exposures/hazards: Yes caffeine: Yes Have you lived/traveled outside [place] in past 30 days?: No Contact w/someone who lives/traveled outside US past 30 days?: No Exposure to someone with infectious disease in past 14 days?: No Do you have a fever (greater than 100.4 F or 38 C)?: No Have you tested positive for COVID-19: No Exposed to someone with COVID-19 in past 14 days?: No Do you have a sore throat?: No Do you have a cough?: No Do you have any weakness?: No Do you have any diarrhea?: No Are you experiencing any unusual bleeding?: No Do you have any muscle aches/pain?: No Do you have any abdominal pain?: No Are you experiencing loss of taste or smell?: No Other Medical History Have you received the Flu Vaccine for this season: Yes Have you received the Pneumonia Vaccine: Yes Review of Systems Review of Systems Review of systems (narrative): Negative *Cardiovascular Comments: Negative *Gastrointestinal Comments: Negative *Genitourinary Comments: Negative *Musculoskeletal Comments: Negative *Neurologic Comments: Negative Meds Home Medications and Allergies Home Medications ?Medication ?Instructions ?Recorded ?Confirmed ?Type aspirin 81 mg tablet,delayed 81 mg PO DAILY thinner 11/07/21 12/21/24 History release albuterol sulfate 90 mcg/actuation See Rx Instructions .Route 12/24/22 12/21/24 Rx aerosol inhaler .COMPLEX #18 grams diclofenac sodium 1 % topical gel See Rx Instructions .Route 03/11/23 12/21/24 Rx .COMPLEX #100 grams carvedilol 25 mg tablet 12.5 mg (1/2 x 25 mg) PO BID #180 12/30/23 12/21/24 Rx tabs omeprazole 20 mg capsule,delayed See Rx Instructions .Route 01/21/24 12/21/24 Rx release .COMPLEX #90 caps lisinopril 5 mg tablet See Rx Instructions .Route 02/24/24 12/21/24 Rx .COMPLEX #90 tabs mupirocin 2 % topical ointment 1 applic topical BID infection 14 08/03/24 12/21/24 Rx days #15 grams atorvastatin 80 mg tablet See Rx Instructions .Route 08/10/24 12/21/24 Rx .COMPLEX #90 tabs clonidine HCl 0.2 mg tablet See Rx Instructions .Route 08/10/24 12/21/24 Rx .COMPLEX #180 tabs glimepiride 4 mg tablet 2 mg (1/2 x 4 mg) PO BID Diabetes 08/10/24 12/21/24 Rx 90 days #180 tabs cetirizine 10 mg tablet See Rx Instructions .Route 10/01/24 12/21/24 Rx .COMPLEX #90 tabs fluticasone propionate 50 1 spray intranasal DAILY PRN cold 10/01/24 12/21/24 Rx mcg/actuation nasal symptoms #16 grams spray,suspension (Flonase Allergy Relief) metformin 1,000 mg tablet See Rx Instructions .Route 10/12/24 12/21/24 Rx .COMPLEX #180 tabs gabapentin 600 mg tablet 600 mg PO TID Pain #90 tabs 10/28/24 12/21/24 Rx semaglutide 0.25 mg or 0.5 mg (2 See Rx Instructions .Route 12/02/24 12/21/24 Rx mg/3 mL) subcutaneous pen injector .COMPLEX 3 months #3 mL (Ozempic) hydrocodone 7.5 mg-acetaminophen 1 tab PO TID #90 tabs 12/07/24 12/21/24 Rx 325 mg tablet New Prescriptions to Start Prescriptions: Allergies Allergy/AdvReac Type Severity Reaction Status Date / Time Penicillins Allergy Unknown Hives Verified 12/15/24 10:38 Exam Data for Last 24 hours Vital signs and Labs for Last 24 Hours: Temp Pulse Resp BP Pulse Ox O2 Del Method 97.5 F L 80 18 118/76 96 Room Air 12/21/24 06:31 12/21/24 06:31 12/21/24 06:31 12/21/24 06:31 12/21/24 06:31 12/21/24 06:31 *Routine HEENT Exam Head: Present normocephalic Eye: Present EOMI and PERRL ENT: Present mucous membranes moist *Routine Neck Exam Neck: Present supple *Routine Respiratory Exam Respiratory: Present CTA bilaterally *Routine Cardiovascular Exam Cardiovascular: Present RRR *Routine Abdominal Exam Abdominal: Present soft and normoactive bowel sounds; Absent tenderness *Routine Rectal Exam Rectal:: deferred *Routine Genitalia Exam Genitalia:: deferred *Routine Extremities Exam Extremities: Absent cyanosis, clubbing or edema *Routine Skin Exam Skin: Present warm; Absent rash *Routine Neurological Exam Neurological: Present alert and oriented X3 Assessment and Plan *Assessment and plan (1) Positive colorectal cancer screening using Cologuard test: Status: Acute Category: Medical Code(s): R19.5 - Other fecal abnormalities Plan A/P: 1. Positive Cologuard is the preprocedural diagnosis. The patient will be anesthetized/sedated using MAC sedation. The patient has been seen and examined. Cardiac and lung assessment prior to the examination is stable. Proceed with planned screening colonoscopy
--- NOTE | 2024-12-21 07:32 | P.PCN_ITS ---
[facility] Procedure Note Date: 12/21/24 Time: 07:50 Procedure Note:: Colonoscopy Procedure Report: Colonoscopy with cold snare polypectomy Endoscopist: Urbano Saenz II, MD Referring physician: JING Maxwell Date of Procedure: December 21, 2024 Equipment: Olympus 190 variable stiffness pediatric colonoscope Sedation: MAC sedation Indication: Mr. Baeza is a 69-year-old gentleman who is here for screening colonoscopy secondary to a positive Cologuard test on May 21, 2024. The patient has had prior colonoscopies and his last colonoscopy on September 24, 2019 showed 3 polyps?tubular adenomas (Andrew Magallon M.D.). The patient reports no abdominal pain, weight loss, change in his bowel habits or rectal bleeding. He reports no family history of colon cancer. Procedure: Prior to the procedure, a history and physical exam was performed, and patient's medications and allergies were reviewed. The risks, benefits and alternatives of the sedation and procedure were discussed with the patient. All questions were answered and informed consent was obtained. The patient was brought to the procedure room. Patient identification and proposed procedure were verified by the physician and the nurse. The patient was placed in a left lateral decubitus position and the scope was passed under direct vision. Throughout the procedure, the patient's blood pressure, pulse, and oxygen saturations were monitored continuously. The colonoscopy was accomplished without difficulty. The patient tolerated the procedure well. Findings: On digital rectal examination there was normal rectal tone. There were no external hemorrhoids. The colonoscope was introduced through the anal canal to the rectum and advanced to the cecum. The ileocecal valve and appendiceal orifice were identified. The scope was advanced a short distance into the ileum which appeared grossly normal. The scope was then withdrawn into the colon. There was a single 4 to 5 mm polyp in the sigmoid colon removed via cold snare polypectomy. The cecum, ascending and transverse colon and mucosa were grossly normal. There were scattered diverticuli throughout the descending and sigmoid colon (LEFT colon). The rectum itself was normal. Upon retroflexion within the rectum there were grade 2 internal hemorrhoids. The preparation was good throughout with Davis Preparation Score of 8 out of 9. The cecal time was 13 minutes. Impression: 1. Sigmoid polyp (4 to 5 mm) 2. Left-sided diverticulosis 3. Grade 2 internal hemorrhoids Plan: I will follow-up the polyp histology and recommend repeat surveillance colonoscopy again in 7 years if the polyp is adenomatous. I would encourage psyllium bulking fiber supplementation on a maintenance basis.
[2024-12-21 07:56] VITALS: BP 106/82; PULSE 80; RESP 17; TEMP 36.3; O2SAT 96
[2024-12-21 08:06] VITALS: BP 109/71; PULSE 88; RESP 18; O2SAT 94
[2024-12-21 08:16] VITALS: BP 110/71; PULSE 77; RESP 18; O2SAT 97
[2024-12-21 08:25] VITALS: BP 126/85; PULSE 78; RESP 18; O2SAT 96
== END 2024-12-21 08:40 | disposition home or self-care (01) ==
PROVIDERS: PCP Family Medicine; Visit Provider Internal Medicine Gastroenterology
PROC: 0DJD8ZZ Inspection of Lower Intestinal Tract, Via Natural or Artificial Opening Endoscopic (ICD-10-PCS; CPT 45378; principal; 2024-12-21 07:30)
DX: K63.5 Polyp of colon (principal); K57.30 Diverticulosis of large intestine without perforation or abscess without bleeding; K64.1 Second degree hemorrhoids; R19.5 Other fecal abnormalities; Z12.11 Encounter for screening for malignant neoplasm of colon; Z86.0101 Personal history of adenomatous and serrated colon polyps
CPT/HCPCS: 45385; J7120

== ENCOUNTER 2025-03-24 06:25 | Outpatient (CLI) | payer MEDICARE, MEDICAID, SELFPAY ==
--- OUTSIDE RECORDS SUMMARY | 2025-03-24 06:29 | XMS_ITS | Clinical Summary ---
Author Organization Healthcare Address [address] [place] [address] Care Team Providers Care Source Inspector Name Role Phone Kareem Sheridan MD Primary Care Provider Family History Medical History Relation Name Comments Coronary artery disease Other 1 Hypertension Other 2 Other cancer Other 3 Relation Name Status Comments Other 1 Other 2 Other 3 Social History Tobacco Use Types Packs/Day Years Used Date Smoking Tobacco: Never Smokeless Tobacco: Current Alcohol Use Standard Drinks/Week Comments Yes 0 (1 standard drink = 0.6 oz pure alcohol) Alcoholic Drinks/day: Daily alcohol use Sex and Gender Information Value Date Recorded Sex Assigned at Not on file Legal Sex Male 8:07 PM EDT Gender Identity Not on file Sexual Orientation Not on file Last Filed Vital Signs Vital Sign Reading Time Taken Comments Blood Pressure 132/84 02/11/2018 9:08 AM EDT Pulse - - Temperature - - Respiratory Rate - - Oxygen Saturation - - Inhaled Oxygen Concentration - - Weight 122 kg (267 lb 15.9 oz) 02/11/2018 9:08 A M EDT Height 182.9 cm (6') 02/11/2018 9:08 AM EDT Body Mass Index 36.35 02/11/2018 9:08 AM EDT Plan of Treatment Health Maintenance Due Date Last Done Comments [facility]-Depression Screening 1955 [facility]-/Child/Adol SDOH Screenings 1955 [facility]- SDOH Screenings 1973 [facility]-Adult SDOH Screenings 1973 [facility]-DTaP,Tdap,and Td Vaccine s (1 - Tdap) 1974 CT Colonography 2000 Colonoscopy 2000 FIT-DNA 2000 FIT 2000 FOBT 2000 Sigmoidoscopy 2000 [facility]-Colorectal Cancer Screening 2000 [facility]-Pneumococcal Vaccine: 50 + Years (1 of 1 - PCV) 2005 [facility]-Zoster Vaccines (1 of 2) 2005 XTD-[id number]-49 Vaccine (1 - 20 24-25 season) 2024 [facility]-Influenza Vaccine (#1) 2025 [facility]-RSV Vaccine: 60+ Years o r (1 - 1-dose 75+ series) 2030 HPV Vaccines Aged Out No longer eligi ble based on patient's age to complete this topic [facility]-HIB Vaccines Aged Out No longer e ligible based on patient's age to complete this topic [facility]-Hepatitis A Vaccines Aged Out No longer eligible based on patient's age to complete this topic [facility]-IPV Vaccines Aged Out No longer e ligible based on patient's age to complete this topic [facility]-Rotavirus Vaccines Aged Out No lo nger eligible based on patient's age to complete this topic Care Teams Source Inspector Relationship Specialty Start Date End Date Kareem Sheridan MD [address] [place] [id number] PCP - General 01/27/21
[2025-03-24 07:14] LABS: Hematocrit 39.5 % (42.0-52.0); Hemoglobin 14.1 g/dL (14.1-18.0); Immature Granulocytes % 0.3 %; Mean Corpuscular HGB Conc 35.7 g/dL (31.8-35.4); Mean Corpuscular Hemoglobin 30.6 pg (27.0-31.2); Mean Corpuscular Volume 85.7 fl (80-94); Nucleated Red Blood Cells % 0 %; Platelet Count 260 K/mm3 (142-424); Red Blood Count 4.61 M/mm3 (4.60-6.20); Red Cell Distribution Width-SD 37.6 fL; White Blood Count 9.7 K/mm3 (4.8-10.8)
[2025-03-24 07:39] LABS: Alanine Aminotransferase 42 U/L (12-78); Albumin Level 4.6 g/dl (3.5-5.0); Alkaline Phosphatase 81 U/L (38-126); Anion Gap 19.9 mEq/L (5-15); Aspartate Amino Transferase 34 U/L (17-59); Bilirubin,Direct 0.2 mg/dl (0.0-0.4); Bilirubin,Indirect 0.5 mg/dL (0.0-0.9); Bilirubin,Total 0.7 mg/dl (0.2-1.3); Bilirubin,Unconjugated 0.5 mg/dL (0.0-1.1); Blood Urea Nitrogen 22 mg/dl (9-20); Calcium 9.7 mg/dl (8.4-10.2); Carbon Dioxide 23 mmol/L (22.0-30.0); Chloride 100 mmol/L (98-107); Cholesterol 117 mg/dl (140-200); Creatinine,Serum 0.80 mg/dl (0.66-1.25); Estimated Glomerular Filt Rate 96 ml/min (>60); GFR (African American) 116 ML/MIN (>60); Glucose 295 mg/dl (74-100); HDL Cholesterol 27 mg/dl (40-60); Magnesium 1.4 mg/dl (1.6-2.3); Potassium 4.9 mmoL/L (3.5-5.1); Sodium 138 mmol/L (136-145); Total Protein,Serum 6.8 g/dl (6.3-8.2); Triglycerides 135 mg/dl (30-150)
[2025-03-24 07:56] LABS: Free T4 (Free Thyroxine) 0.87 ng/dl (0.78-2.19)
[2025-03-24 08:10] LABS: Thyroid Stimulating Hormone 1.36 uIU/mL (0.465-4.68)
== END 2025-03-24 23:59 | disposition home or self-care (01) ==
LOC: LAB 06:27
PROVIDERS: PCP Family Medicine; Visit Provider Nurse Practitioner
DX: I25.10 Atherosclerotic heart disease of native coronary artery without angina pectoris (principal); I65.23 Occlusion and stenosis of bilateral carotid arteries; R53.83 Other fatigue; I10 Essential (primary) hypertension
CPT/HCPCS: 36415; 80048; 80061; 80076; 83735; 84439; 84443; 85025

== ENCOUNTER 2025-07-13 06:53 | Outpatient (CLI) | payer MEDICARE, MEDICAID, SELFPAY ==
--- OUTSIDE RECORDS SUMMARY | 2025-07-13 06:56 | XMS_ITS | Clinical Summary ---
Author Organization Healthcare Address [address] [place] [address] Care Team Providers Care Software Quality Automation Engineer Name Role Phone Kareem Sheridan MD Primary [...] 2005 [facility]-Zoster Vaccines (1 of 2) 2005 TTN-LVHPL-12 Vaccine (1 - 20 24-25 season) 2025 [facility]-Influenza Vaccine (#1) 2025 [facility]-RSV Vaccine: 60+ [...] age to complete this topic Care Teams Software Quality Automation Engineer Relationship Specialty Start Date End Date Kareem Sheridan MD [address] [place] [id number] PCP - General 01/27/21
--- NOTE | 2025-07-13 06:57 | XR_ITS ---
FINAL REPORT CLINICAL HISTORY: left knee pain COMPARISON: 11/05/2023 FINDINGS: LEFT KNEE 3 views of the left knee were obtained. There is no acute fracture or dislocation. There is advanced medial compartment joint space narrowing and subchondral sclerosis. There are osteophytes at the undersurface of the patella. An ossific protuberance is seen at the posterior aspect of the proximal medial tibial metaphysis which may be related to exostosis. Visualized joint spaces are normally aligned. Soft tissues are unremarkable. IMPRESSION: Stable degenerative changes without acute bony abnormality. Reviewed, Interpreted and Dictated by Reynaldo Mcguire MD Transcribed by Atiya Fregoso Authenticated and [facility]
--- NOTE | 2025-07-13 06:57 | XR_ITS ---
FINAL REPORT CLINICAL HISTORY: right knee pain COMPARISON: 11/05/2023 FINDINGS: RIGHT KNEE 3 views of the right knee were obtained. There is advanced medial compartment joint space narrowing. There are osteophytes at the undersurface of the patella. Subchondral sclerosis is noted. There is no acute fracture or dislocation. Visualized joint spaces are normally aligned. Soft tissues are unremarkable. IMPRESSION: No acute bony abnormality. Stable degenerative changes. Reviewed, Interpreted and Dictated by Reynaldo Mcguire MD Transcribed by Atiya Fregoso Authenticated and [facility]
== END 2025-07-13 23:59 | disposition home or self-care (01) ==
LOC: RAD 06:54
PROVIDERS: PCP Family Medicine; Visit Provider Physician Assistant
DX: M17.11 Unilateral primary osteoarthritis, right knee (principal); M17.12 Unilateral primary osteoarthritis, left knee
CPT/HCPCS: 73562

== ENCOUNTER 2025-08-06 10:45 | Outpatient (RCR) | payer MEDICARE, MEDICAID, SELFPAY | END 2025-08-06 23:59 | disposition home or self-care (01) | LOC: PT 10:45 | PROVIDERS: PCP Family Medicine; Visit Provider Physician Assistant | DX: M17.12 Unilateral primary osteoarthritis, left knee (principal) | CPT/HCPCS: 97760 ==

== ENCOUNTER 2025-08-25 07:34 | Outpatient (CLI) | payer MEDICARE, MEDICAID, SELFPAY ==
[2025-08-25 18:36] LABS: Alanine Aminotransferase 35 U/L (12-78); Albumin Level 4.6 g/dl (3.5-5.0); Albumin/Globulin Ratio 1.9 (1.1-1.8); Alkaline Phosphatase 102 U/L (38-126); Anion Gap 19.3 mEq/L (5-15); Aspartate Amino Transferase 30 U/L (17-59); Bilirubin,Total 0.8 mg/dl (0.2-1.3); Blood Urea Nitrogen 17 mg/dl (9-20); Calcium 9.8 mg/dl (8.4-10.2); Carbon Dioxide 23 mmol/L (22.0-30.0); Chloride 99 mmol/L (98-107); Creatinine,Serum 0.80 mg/dl (0.66-1.25); Estimated Glomerular Filt Rate 96 ml/min (>60); GFR (African American) 116 ML/MIN (>60); Globulin 2.4 g/dL (1.3-3.2); Glucose 195 mg/dl (74-100); Potassium 4.3 mmoL/L (3.5-5.1); Sodium 137 mmol/L (136-145); Total Protein,Serum 7.0 g/dl (6.3-8.2)
--- OUTSIDE RECORDS SUMMARY | 2025-08-27 08:08 | XMS_ITS | Clinical Summary ---
Author Organization Healthcare Address [address] [place] [address] Care Team Providers Care Internet Technology Manager Name Role Phone Kareem Sheridan MD Primary [...] 2005 [facility]-Zoster Vaccines (1 of 2) 2005 [id number]-GYFYS-10 Vaccine (1 - 20 25-26 season) 2025 [facility]-Influenza Vaccine (#1) 2025 [facility]-RSV [...] age to complete this topic Care Teams Internet Technology Manager Relationship Specialty Start Date End Date Kareem Sheridan MD [address] [place] [phone] PCP - General 01/27/21
== END 2025-08-25 23:59 ==
LOC: LAB.DROPOF 08-27 07:36
PROVIDERS: PCP Student in an Organized Health Care Education/Training Program; Visit Provider Family Medicine
DX: E11.42 Type 2 diabetes mellitus with diabetic polyneuropathy (principal); Z12.5 Encounter for screening for malignant neoplasm of prostate
CPT/HCPCS: 80053; 82043; 82570; G0103